=== PATIENT | female | born 1935 | race Caucasian/White ===

== ENCOUNTER → 2016-11-29 | Outpatient (CLI) | payer MEDICARE, BC ==
[2016-11-29 09:32] LABS: Basophils # (A) 0.1 k/uL (0-0.2); Basophils % (A) 1 %; CH 32.8; CHCM 33.8; Eosinophils # (A) 0.3 k/uL (0-0.7); Eosinophils % (A) 4 %; HCT 48.9 % (34.0-46.0); HDW 2.67; Luc # (Auto) 0.14; Luc % (Auto) 2; Lymphocytes # (A) 2.1 k/uL (1.0-4.8); Lymphocytes % (A) 30 %; MCH 31.9 pg (25.0-35.0); MCHC 32.7 g/dL (31.0-37.0); MCV 97.6 fL (80.0-100.0); Mean Platelet Volume 8.9; Monocytes # (A) 0.3 k/uL (0-1.0); Monocytes % (A) 5 %; Neutrophils # (A) 3.9 k/uL (1.3-7.7); Neutrophils % (A) 58 %; RBC 5.02 m/uL (3.80-5.40); RDW 13.5 % (11.5-15.5); WBC 6.7 k/uL (3.8-10.6); WBC (Perox) 6.86
[2016-11-29 10:42] LABS: Appearance,Urine Cloudy (Clear); Bacteria,Urine Many /hpf; Bilirubin,Urine Negative (Negative); Glucose,Urine (UA) Negative (Negative); Ketones,Urine Negative (Negative); Leukocyte Esterase,Urine Large (Negative); Mucus,Urine Occasional /hpf; Nitrite,Urine Negative (Negative); Particle Count 10520; Protein,Urine 1+ (Negative); RBC,Urine 16 /hpf (0-5); Specific Gravity,Urine 1.018 (1.001-1.035); Squamous Epithelial Cell,Urine 6 /hpf (0-4); UA Billing (MACRO vs. MICRO) MICRO; WBC,Urine 24 /hpf (0-5)
[2016-11-29 12:41] LABS: Calcium 9.4 mg/dL (8.4-10.2); Magnesium 2.1 mg/dL (1.6-2.3); Phosphorous 4.2 mg/dL (2.5-4.5); Uric Acid 5.7 mg/dL (3.7-7.4)
[2016-11-29 12:51] LABS: % Iron Saturation 25.3 % (20-50)
== END | disposition home or self-care (01) ==
LOC: LABWHC1 08:33
PROVIDERS: ATTEND Internal Medicine Nephrology
DX: N18.3 Chronic kidney disease, stage 3 (moderate) (principal); D64.9 Anemia, unspecified; E55.9 Vitamin D deficiency, unspecified; E21.3 Hyperparathyroidism, unspecified; M10.9 Gout, unspecified; N39.0 Urinary tract infection, site not specified
CPT/HCPCS: 36415; 80048; 81001; 82306; 82728; 83540; 83550; 83735; 83970; 84100; 84550; 85025

== ENCOUNTER → 2016-12-18 | Outpatient (CLI) | payer MEDICARE, BC ==
--- NOTE | 2016-12-18 13:08 | US ---
EXAMINATION TYPE: US kidneys/renal and bladder DATE OF EXAM: 12/18/2016 12:43 PM COMPARISON: NONE CLINICAL HISTORY: N18.3 CKD. no symptoms per patient EXAM MEASUREMENTS: Right Kidney: 10.2 x 4.2 x 4.3 cm Left Kidney: 10.3 x 3.9 x 4.6c cm Findings: Right Kidney: cortical thinning Left Kidney: cortical thinning Bladder: wnl Bilateral Jets seen: no appearance of left sided pleural effusion There is no evidence for hydronephrosis at this point in time. No nephrolithiasis is seen. No jeremy s are identified. The urinary bladder is anechoic. Bilateral ureteral jets are seen. IMPRESSION: Cortical thinning. Otherwise unremarkable study.
== END ==
LOC: RADUSWWP 12:26
PROVIDERS: ATTEND Internal Medicine Nephrology
DX: N18.3 Chronic kidney disease, stage 3 (moderate) (principal)
CPT/HCPCS: 76770

== ENCOUNTER 2017-01-13 10:15 | Emergency (ER) | payer MEDICARE, BC ==
[2017-01-13 10:34] VITALS: TEMP 98.2
--- NOTE | 2017-01-13 11:31 | ED ---
Lower Extremity Injury HPI - General Chief Complaint: Extremity Injury, Lower Stated Complaint: RT LEG INJURY FROM FALL Time Seen by Provider: 01/13/17 11:16 Source: patient Mode of arrival: wheelchair Limitations: no limitations - History of Present Illness Initial Comments: 81-year-old female patient presents emergency department today for complaints of right hip pain. Patient states yesterday she was in the bathroom slipped and fell. Patient denies hitting her hip on anything. She denies hitting her head or losing consciousness. She denies any head, neck, or back pain. Patient states she is able to bear weight and walk however it is very painful. She denies any numbness or tingling to the extremity. Has any chest pain, weakness, dizziness, abdominal pain, nausea, or vomiting. She denies any urinary symptoms. Denies any change in bowel habits. - Related Data Home Medications Medication Instructions Recorded Confirmed Aspirin 81 mg PO DAILY 08/03/15 08/03/15 Donepezil HCl [Donepezil HCl] 5 mg PO DAILY 08/03/15 08/03/15 Ergocalciferol [Vitamin D2] 50,000 unit PO Q7D 08/03/15 08/03/15 Furosemide [Furosemide] 20 mg PO DAILY 08/03/15 08/03/15 Levothyroxine Sodium [Synthroid] 88 mcg PO DAILY 08/03/15 08/03/15 Meclizine HCl 12.5 mg PO BID 08/03/15 08/03/15 Metoprolol Succinate [Toprol XL] 50 mg PO HS 08/03/15 08/03/15 Pantoprazole Sodium 40 mg PO DAILY 08/03/15 08/03/15 amLODIPine BESYLATE [Amlodipine 10 mg PO DAILY 08/03/15 08/03/15 Besylate] Previous Rx's Medication Instructions Recorded Acetaminophen-Codeine 300-30mg 1 tab PO Q4H PRN #20 tablet 01/13/17 [Tylenol #3] Allergies Allergy/AdvReac Type Severity Reaction Status Date / Time Penicillins Allergy Unknown Verified 01/13/17 12:14 Sulfa (Sulfonamide Allergy Unknown Verified 01/13/17 12:14 Antibiotics) Review of Systems ROS Statement: Those systems with pertinent positive or pertinent negative responses have been documented in the HPI. ROS Other: All systems not noted in ROS Statement are negative. Past Medical History Past Medical History: CVA/TIA, Hyperlipidemia, Hypertension, Renal Disease Additional Past Medical History / Comment(s): CVA "FEW YRS AGO"-WALKS WITH CANE- HAS BALANCE PROBLEMS-STM LOSS,SOB, STONES IN GALLBLADDER AND BILE DUCT History of Any Multi-Drug Resistant Organisms: None Reported Past Surgical History: Tonsillectomy Past Anesthesia/Blood Transfusion Reactions: No Reported Reaction Past Psychological History: No Psychological Hx Reported Smoking Status: Current every day smoker Past Alcohol Use History: None Reported Additional Past Alcohol Use History / Comment(s): STARTED SMOKING 1950 Past Drug Use History: None Reported - Past Family History Mother History Unknown: Yes Father History Unknown: Yes General Exam Limitations: no limitations General appearance: alert, in no apparent distress Head exam: Present: atraumatic, normocephalic, normal inspection Eye exam: Present: normal appearance, PERRL, EOMI. Absent: scleral icterus, conjunctival injection, periorbital swelling ENT exam: Present: normal exam, normal oropharynx, mucous membranes moist Neck exam: Present: normal inspection, full ROM. Absent: tenderness, meningismus, lymphadenopathy Respiratory exam: Present: normal lung sounds bilaterally. Absent: respiratory distress, wheezes, rales, rhonchi, stridor Cardiovascular Exam: Present: regular rate, normal rhythm, normal heart sounds. Absent: systolic murmur, diastolic murmur, rubs, gallop, clicks GI/Abdominal exam: Present: soft, normal bowel sounds. Absent: distended, tenderness, guarding, rebound, rigid Extremities exam: Present: normal inspection, full ROM, tenderness (Over the greater trochanter of right hip joint), normal capillary refill, other ( Increased pain with abduction, extension. No shortening or rotation.). Absent : pedal edema, joint swelling Back exam: Present: normal inspection. Absent: tenderness, vertebral tenderness Neurological exam: Present: alert, oriented X3, CN II-XII intact Psychiatric exam: Present: normal affect, normal mood Skin exam: Present: warm, dry, intact, normal color. Absent: rash Course Vital Signs 01/13/17 10:31 Temperature 98.2 F Pulse Rate 70 Respiratory 18 Rate Blood Pressure 107/58 O2 Sat by Pulse 95 Oximetry Medical Decision Making - Medical Decision Making 81-year-old female patient presented to emergency department for evaluation of right hip pain after fall. X-ray was obtained and showed no acute osseous lesion to right hip or pelvis. Patient does have full range of motion on physical exam, neurovascular status is intact. Patient be discharged home with instructions to rest and ice the area. Patient instructed to follow up with primary care physician if symptoms don't start to improve over the next 1-2 days. Patient instructed to return for any new, worsening, or concerning symptoms. Patient verbalizes understanding and agrees with this plan. - Radiology Data Radiology results: report reviewed, image reviewed X-ray of the right hip and AP pelvis findings: There is hypertrophic change in the symphysis pubis. Bony structures about the pelvis are otherwise unremarkable. Hip joint is maintained. No fracture dislocation seen. Impression by Dr. Murray is no acute osseous lesion. Disposition Clinical Impression: Contusion of right hip Disposition: HOME SELF-CARE Condition: Stable Instructions: Hip Contusion (ED) Additional Instructions: Rest and ice the area. 20 minutes on at least 4 times per day. Follow-up with primary care physician if symptoms don't improve. Return for any new, worsening , or concerning symptoms. Prescriptions: Acetaminophen-Codeine 300-30mg [Tylenol #3] 1 tab PO Q4H PRN #20 tablet PRN Reason: pain Referrals: Ana Baxter DO [Primary Care Provider] - 1-2 days Time of Disposition: 12:10
--- NOTE | 2017-01-13 11:58 | XR ---
EXAMINATION TYPE: XR Hip RT and AP Pelvis DATE OF EXAM ORDERED: 01/13/2017 11:49 AM HISTORY: Pain. COMPARISON: None. FINDINGS: There is hypertrophic change in the symphysis pubis. Bony structures about the pelvis are otherwise unremarkable. The hip joint is maintained. No fracture or dislocation is seen. IMPRESSION: NO ACUTE OSSEOUS LESION.
[2017-01-13 12:27] VITALS: BP 148/73; PULSE 68; RESP 16
== END 2017-01-13 12:26 | disposition home or self-care (01) ==
LOC: EC 10:15
DX: S70.01XA Contusion of right hip, initial encounter (principal); E78.5 Hyperlipidemia, unspecified; I10 Essential (primary) hypertension; Z86.73 Personal history of transient ischemic attack (TIA), and cerebral infarction without residual deficits; F17.200 Nicotine dependence, unspecified, uncomplicated; Z79.82 Long term (current) use of aspirin; Z79.899 Other long term (current) drug therapy; Z88.0 Allergy status to penicillin; Z88.2 Allergy status to sulfonamides; W01.0XXA Fall on same level from slipping, tripping and stumbling without subsequent striking against object, initial encounter; Y92.002 Bathroom of unspecified non-institutional (private) residence as the place of occurrence of the external cause
CPT/HCPCS: 73502; 99283

== ENCOUNTER 2018-04-09 18:23 | Inpatient (IN) | payer MEDICARE, BC ==
[2018-04-09 18:36] LABS: Glucose,Whole Blood 137 mg/dL (75-99)
[2018-04-09] MEDS ORDERED: SODIUM CHLORIDE 0.9% 500 ML IV STA (18:41)
--- NOTE | 2018-04-09 18:46 | ED ---
General Adult HPI - General Chief complaint: Syncope Stated complaint: Syncope Time Seen by Provider: 04/09/18 18:25 Source: patient, EMS, RN notes reviewed Mode of arrival: EMS Limitations: no limitations - History of Present Illness Initial comments: Is a 82-year-old female who presents emergency Department complaining of a club so. Patient was getting her blood drawn to make sure she didn't have any elevated lead levels and she passed out. Patient states she had no symptoms before or after she passed out. She didn't even know she passed out. Patient denies headache patient denies any numbness weakness. Patient denies being lightheaded now. Patient denies being lightheaded then. Patient denies any palpitations. Patient denies any chest pain difficulty breathing or shortness of breath. Patient denies any recent fever chills or cough. Patient denies any new medications. Patient denies any history of syncope in the past. Patient states she didn't even know she was going to pass out and didn't know what happened she woke up on the floor with people talking to her and she had to be told what happened. She had no prodrome. - Related Data Home Medications Medication Instructions Recorded Confirmed Donepezil HCl [Donepezil HCl] 5 mg PO DAILY 08/03/15 04/09/18 Ergocalciferol [Vitamin D2] 50,000 unit PO Q30D 08/03/15 04/09/18 Furosemide [Furosemide] 20 mg PO DAILY 08/03/15 04/09/18 Levothyroxine Sodium [Synthroid] 88 mcg PO DAILY 08/03/15 04/09/18 Meclizine HCl 12.5 mg PO BID 08/03/15 04/09/18 Metoprolol Succinate [Toprol XL] 25 mg PO BID 08/03/15 04/09/18 Pantoprazole Sodium 40 mg PO DAILY 08/03/15 04/09/18 Atorvastatin [Lipitor] 40 mg PO HS 01/13/17 04/09/18 Ramipril [Altace] 2.5 mg PO DAILY 01/13/17 04/09/18 Aspirin [Adult Low Dose Aspirin EC] 81 mg PO DAILY 04/09/18 04/09/18 amLODIPine [Norvasc] 5 mg PO DAILY 04/09/18 04/09/18 Allergies Allergy/AdvReac Type Severity Reaction Status Date / Time Penicillins Allergy Unknown Verified 04/09/18 18:55 Sulfa (Sulfonamide Allergy Unknown Verified 04/09/18 18:55 Antibiotics) Review of Systems ROS Statement: Those systems with pertinent positive or pertinent negative responses have been documented in the HPI. ROS Other: All systems not noted in ROS Statement are negative. Past Medical History Past Medical History: CVA/TIA, Hyperlipidemia, Hypertension, Renal Disease Additional Past Medical History / Comment(s): CVA "FEW YRS AGO"-WALKS WITH CANE- HAS BALANCE PROBLEMS-STM LOSS,SOB, STONES IN GALLBLADDER AND BILE DUCT History of Any Multi-Drug Resistant Organisms: None Reported Past Surgical History: Tonsillectomy Past Anesthesia/Blood Transfusion Reactions: No Reported Reaction Past Psychological History: No Psychological Hx Reported Smoking Status: Current every day smoker Past Alcohol Use History: None Reported Past Drug Use History: None Reported - Past Family History Mother History Unknown: Yes Father History Unknown: Yes General Exam - General Exam Comments Initial Comments: GENERAL: Patient is well-developed and well-nourished. Patient is nontoxic and well- hydrated and is in no acute distress. ENT: Neck is soft and supple. No significant lymphadenopathy is noted. Oropharynx is clear. Moist mucous membranes. Neck has full range of motion without eliciting any pain. EYES: The sclera were anicteric and conjunctiva were pink and moist. Extraocular movements were intact and pupils were equal round and reactive to light. Eyelids were unremarkable. PULMONARY: Unlabored respirations. Good breath sounds bilaterally. No audible rales rhonchi or wheezing was noted. CARDIOVASCULAR: There is a regular rate and rhythm without any murmurs gallops or rubs. ABDOMEN: Soft and nontender with normal bowel sounds. No palpable organomegaly was noted. There is no palpable pulsatile mass. SKIN: Skin is clear with no lesions or rashes and otherwise unremarkable. NEUROLOGIC: Patient is alert and oriented x3. Cranial nerves II through XII are grossly intact. Motor and sensory are also intact. Normal speech, volume and content. Symmetrical smile. MUSCULOSKELETAL: Normal extremities with adequate strength and full range of motion. LYMPHATICS: No significant lymphadenopathy is noted PSYCHIATRIC: Normal psychiatric evaluation. Normal interpersonal interactions appears functionally intact in deals appropriately with others. No signs of depression. No signs of anxiety. Limitations: no limitations Course Vital Signs 04/09/18 04/09/18 18:28 20:07 Temperature 97 F L Pulse Rate 61 57 L Respiratory 18 18 Rate Blood Pressure 103/58 144/62 O2 Sat by Pulse 89 L 100 Oximetry Medical Decision Making - Medical Decision Making EKG shows sinus bradycardia 56 bpm SC interval 254 QRS is 82 QT interval 446 QTC is 4:30. Patient's EKG shows no ST segment elevation or depression or T wave abnormalities are noted. Chest x-ray shows no acute abnormality. Patient has no symptoms at this time. Dr. Negron agreed to admit the patient admitted the patient I consult cardiology. - Lab Data Result diagrams: 04/09/18 18:46 04/09/18 18:46 Lab Results 04/09/18 04/09/18 04/09/18 Range/Units 18:33 18:46 18:46 WBC 8.5 (3.8-10.6) k/uL RBC 4.41 (3.80-5.40) m/uL Hgb 13.8 (11.4-16.0) gm/dL Hct 41.5 (34.0-46.0) % MCV 94.1 (80.0-100.0) fL MCH 31.4 (25.0-35.0) pg MCHC 33.3 (31.0-37.0) g/dL RDW 13.6 (11.5-15.5) % Plt Count 260 (150-450) k/uL Neutrophils % 47 % Lymphocytes % 41 % Monocytes % 6 % Eosinophils % 4 % Basophils % 0 % Neutrophils # 4.0 (1.3-7.7) k/uL Lymphocytes # 3.5 (1.0-4.8) k/uL Monocytes # 0.5 (0-1.0) k/uL Eosinophils # 0.3 (0-0.7) k/uL Basophils # 0.0 (0-0.2) k/uL PT (9.0-12.0) sec INR (<1.2) APTT (22.0-30.0) sec Sodium (137-145) mmol/L Potassium (3.5-5.1) mmol/L Chloride (98-107) mmol/L Carbon Dioxide (22-30) mmol/L Anion Gap mmol/L BUN (7-17) mg/dL Creatinine (0.52-1.04) mg/dL Est GFR (CKD-EPI)AfAm (>60 ml/min/1.73 sqM) Est GFR (CKD-EPI)NonAf (>60 ml/min/1.73 sqM) Glucose (74-99) mg/dL POC Glucose (mg/dL) 137 H (75-99) mg/dL POC Glu Pathology Laboratory Aides Teacher ID Salgat, Jyotsna Calcium (8.4-10.2) mg/dL Magnesium (1.6-2.3) mg/dL Total Bilirubin (0.2-1.3) mg/dL AST (14-36) U/L ALT (9-52) U/L Alkaline Phosphatase (38-126) U/L Total Creatine Kinase 31 (30-135) U/L CK-MB (CK-2) 0.3 (0.0-2.4) ng/mL CK-MB (CK-2) Rel Index 1.0 Troponin I <0.012 (0.000-0.034) ng/mL Total Protein (6.3-8.2) g/dL Albumin (3.5-5.0) g/dL 04/09/18 04/09/18 Range/Units 18:46 18:46 WBC (3.8-10.6) k/uL RBC (3.80-5.40) m/uL Hgb (11.4-16.0) gm/dL Hct (34.0-46.0) % MCV (80.0-100.0) fL MCH (25.0-35.0) pg MCHC (31.0-37.0) g/dL RDW (11.5-15.5) % Plt Count (150-450) k/uL Neutrophils % % Lymphocytes % % Monocytes % % Eosinophils % % Basophils % % Neutrophils # (1.3-7.7) k/uL Lymphocytes # (1.0-4.8) k/uL Monocytes # (0-1.0) k/uL Eosinophils # (0-0.7) k/uL Basophils # (0-0.2) k/uL PT 11.1 (9.0-12.0) sec INR 1.1 (<1.2) APTT 20.1 L (22.0-30.0) sec Sodium 142 (137-145) mmol/L Potassium 4.7 (3.5-5.1) mmol/L Chloride 107 (98-107) mmol/L Carbon Dioxide 25 (22-30) mmol/L Anion Gap 10 mmol/L BUN 26 H (7-17) mg/dL Creatinine 1.80 H (0.52-1.04) mg/dL Est GFR (CKD-EPI)AfAm 30 (>60 ml/min/1.73 sqM) Est GFR (CKD-EPI)NonAf 26 (>60 ml/min/1.73 sqM) Glucose 133 H (74-99) mg/dL POC Glucose (mg/dL) (75-99) mg/dL POC Glu Pathology Laboratory Aides Teacher ID Calcium 8.9 (8.4-10.2) mg/dL Magnesium 2.1 (1.6-2.3) mg/dL Total Bilirubin 0.5 (0.2-1.3) mg/dL AST 24 (14-36) U/L ALT 31 (9-52) U/L Alkaline Phosphatase 42 (38-126) U/L Total Creatine Kinase (30-135) U/L CK-MB (CK-2) (0.0-2.4) ng/mL CK-MB (CK-2) Rel Index Troponin I (0.000-0.034) ng/mL Total Protein 6.0 L (6.3-8.2) g/dL Albumin 3.5 (3.5-5.0) g/dL Disposition Clinical Impression: Syncope and collapse Disposition: ADMITTED IP TO THIS HOSP Referrals: Ana Baxter DO [Primary Care Provider] - 1-2 days Time of Disposition: 20:36
[2018-04-09 18:53] LABS: Basophils % (A) 0 %; Eosinophils # (A) 0.3 k/uL (0-0.7); Eosinophils % (A) 4 %; HCT 41.5 % (34.0-46.0); HGB 13.8 gm/dL (11.4-16.0); Lymphocytes # (A) 3.5 k/uL (1.0-4.8); Lymphocytes % (A) 41 %; MCH 31.4 pg (25.0-35.0); MCHC 33.3 g/dL (31.0-37.0); MCV 94.1 fL (80.0-100.0); Mean Platelet Volume 8.5; Monocytes # (A) 0.5 k/uL (0-1.0); Monocytes % (A) 6 %; Neutrophils % (A) 47 %; Platelet Count 260 k/uL (150-450); RBC 4.41 m/uL (3.80-5.40); RDW 13.6 % (11.5-15.5); WBC 8.5 k/uL (3.8-10.6)
[2018-04-09 19:05] LABS: Albumin 3.5 g/dL (3.5-5.0); Calcium 8.9 mg/dL (8.4-10.2); Magnesium 2.1 mg/dL (1.6-2.3); Potassium 4.7 mmol/L (3.5-5.1); Total Bilirubin 0.5 mg/dL (0.2-1.3)
--- NOTE | 2018-04-09 19:08 | XR ---
EXAMINATION TYPE: XR chest 2V DATE OF EXAM: 04/09/2018 COMPARISON: September 15, 2016 HISTORY: Chest pain TECHNIQUE: Frontal and lateral views of the chest are obtained. FINDINGS: There is no heart failure nor confluent pneumonic infiltrate. Costophrenic angles are sammi r. There are no hilar masses. Thoracic aorta is atheromatous. There is pleural thickening and calcifi cation at the lung apices. There is some coarsening of interstitial markings. IMPRESSION: Pleural scarring. Mild pulmonary fibrosis. No active cardiopulmonary disease. No signifi cant change.
[2018-04-09 19:12] LABS: Creatine Kinase 31 U/L (30-135)
[2018-04-09 19:26] LABS: Creatine Kinase MB 0.3 ng/mL (0.0-2.4); Troponin I <0.012 ng/mL (0.000-0.034)
[2018-04-09 19:27] LABS: INR 1.1 (<1.2); Prothrombin Time 11.1 sec (9.0-12.0)
[2018-04-09 19:33] LABS: Partial Thromboplastin Time 20.1 sec (22.0-30.0)
[2018-04-09] MEDS ORDERED: NITROGLYCERIN SL TABS 0.4 MG TAB SUBLINGUAL PRN (20:37)
[2018-04-09 21:19] VITALS: BMI 23.1
[2018-04-10 01:53] LABS: Creatine Kinase 29 U/L (30-135)
[2018-04-10 02:07] LABS: Creatine Kinase MB 0.3 ng/mL (0.0-2.4); Troponin I <0.012 ng/mL (0.000-0.034)
[2018-04-10 07:44] LABS: Creatine Kinase 28 U/L (30-135)
[2018-04-10 07:46] LABS: Creatine Kinase MB 0.3 ng/mL (0.0-2.4); Troponin I <0.012 ng/mL (0.000-0.034)
[2018-04-10 08:14] LABS: Cholesterol 132 mg/dL (<200); HDL Cholesterol 25 mg/dL (40-60); LDL Cholesterol,Calculated 76 mg/dL (0-99); Triglycerides 154 mg/dL (<150)
--- NOTE | 2018-04-10 09:18 | CONS ---
CONSULTATION CHIEF COMPLAINT: Syncope. This is an 82-year-old lady that is admitted to the hospital with syncope. Because the [facility] system is not functioning we do not have access to any of her records, labs or vital signs at this time. I am told by the nurse that the patient was standing in line to have a blood draw and then suddenly passed out. She did not have bladder or bowel incontinence or focal neurological deficits. She carries a history of prior stroke and ambulates with a walker. Currently lives with her children from what she tells me. Since being admitted to hospital, she is doing well and is free of symptoms. Has not had further episodes of syncope. Denies chest pain, difficulty in breathing or palpitations. EKG shows sinus bradycardia. Rhythm strip showed that she is in sinus rhythm. PAST MEDICAL HISTORY: She denies hypertension, diabetes, dyslipidemia. MEDICATIONS: She does not have the list with her. ALLERGIES: Allergies are as charted. FAMILY HISTORY: Not relevant. SOCIAL HISTORY: Denies current smoking, EtOH abuse or drug abuse. REVIEW OF SYSTEMS: HEENT is unremarkable. CARDIAC: As described above. RESPIRATORY: As described above. GI: Negative. GENITOURINARY: Negative. ALLERGY/IMMUNOLOGY: Negative. SKIN: Negative. MUSCULOSKELETAL: Significant for arthritis. PSYCHOSOCIAL: Negative. ENDOCRINE: Negative. DERMATOLOGICAL: Negative. CONSTITUTIONAL: Negative. ONCOLOGICAL: Negative. INTEGRATED CIRCUIT LAYOUT DESIGNER: Significant for syncope. PHYSICAL EXAMINATION: On exam, patient is comfortable at rest. Her vital signs are stable. There is no jugular venous distention. Carotid upstroke is normal. Chest exam reveals diminished air entry at the bases. Heart exam reveals first and second heart sounds. No gallop. Has a systolic murmur at the apex. Abdomen is soft. Exam of extremities did not reveal any edema. Peripheral pulses are felt. INTEGRATED CIRCUIT LAYOUT DESIGNER exam did not reveal focal neurological deficits. EKG is as described above. Labs are not available to me at this time. I will review them as they are available. ASSESSMENT: Syncope, rule out cardiac causes. PLAN: So far, the patient did not have tachy or bradyarrhythmias. The patient did not have any CVA. I am going to obtain a 2D echo to evaluate LV function and carotid duplex study to rule out carotid stenosis. Obtain orthostatics. From the clinical presentation, it seems like a vasovagal episode as patient was standing for blood draw, but we will complete this workup and once this is done, we should be able to let her go home and pursue further workup in the outpatient setting including a possible stress test. SHARON / IJN: [id number] /
[2018-04-10] MEDS: ASPIRIN 325 MG TAB PO SCH (11:22)
--- NOTE | 2018-04-10 13:00 | US ---
EXAMINATION TYPE: US carotid duplex BILAT DATE OF EXAM: 04/10/2018 COMPARISON: NONE CLINICAL HISTORY: STENOSIS. EXAM MEASUREMENTS: RIGHT: Peak Systolic Velocity (PSV) cm/sec ----- Right CCA: 72.4 ----- Right ICA: 128.7 ----- Right ECA: 92.5 ICA/CCA ratio: 1.8 RIGHT: End Diastole cm/sec ----- Right CCA: 14.2 ----- Right ICA: 22.3 ----- Right ECA: 0.0 LEFT: Peak Systolic Velocity (PSV) cm/sec ----- Left CCA: 44.6 ----- Left ICA: -- ----- Left ECA: 108.8 ICA/CCA ratio: -- LEFT: End Diastole cm/sec ----- Left CCA: 0.0 ----- Left ICA: -- ----- Left ECA: 0.0 VERTEBRALS (direction of flow): Right Vertebral: Antegrade Left Vertebral: Antegrade Rhythm: Normal Moderate plaque on right, severe plaque on left. Right ICA shows slight velocity increase, left ICA a ppears to be occluded. No color-flow evident in the distribution of the proximal internal carotid ar becki on the left. Grayscale, color Doppler, spectral Doppler imaging performed of the carotid arteries. 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 Atheromatous changes are present on the right, carotid CTA may be of benefit.
[2018-04-10] MEDS ORDERED: ERGOCALCIFEROL 50,000 UNIT CAP PO SCH (13:30)
--- NOTE | 2018-04-10 14:00 | P.HPIM ---
History of Present Illness H&P Date: 04/10/18 Chief Complaint: syncope with collapse This is an 82-year-old female patient of Dr. Baxter who presented to the emergency department after she had a syncopal episode with collapse. And states she was waiting in line to get her blood drawn when she passed out. Patient states she had no memory of the event. Patient states she does have a history of CVA a few years ago. Other history includes hyperlipidemia, hypertension, renal disease. Patient is a current every day smoker. Patient denies any lightheadedness headache or neuro symptoms at this time. Denies losing bowel or bladder function during event. Denies pain or shortness of breath at this time. Chest x-ray completed in emergency department showing pleural scarring. Mild pulmonary fibrosis. No active cardiopulmonary disease no significant change. EKG showed sinus bradycardia. Cardiology has been consulted. A Carotid ultrasound, orthostatic blood pressures, and 2-D echo have been ordered. Review of Systems Otherwise unremarkable please see HPI Past Medical History Past Medical History: CVA/TIA, Hyperlipidemia, Hypertension, Renal Disease Additional Past Medical History / Comment(s): CVA "FEW YRS AGO"-WALKS WITH CANE- HAS BALANCE PROBLEMS-STM LOSS,SOB, STONES IN GALLBLADDER AND BILE DUCT History of Any Multi-Drug Resistant Organisms: None Reported Past Surgical History: Tonsillectomy Past Anesthesia/Blood Transfusion Reactions: No Reported Reaction Past Psychological History: No Psychological Hx Reported Smoking Status: Current every day smoker Past Alcohol Use History: None Reported Additional Past Alcohol Use History / Comment(s): STARTED SMOKING 1950 Past Drug Use History: None Reported - Past Family History Mother History Unknown: Yes Father History Unknown: Yes Medications and Allergies Home Medications Medication Instructions Recorded Confirmed Type Donepezil HCl 5 mg PO DAILY 08/03/15 04/09/18 History Ergocalciferol [Vitamin D2] 50,000 unit PO Q30D 08/03/15 04/09/18 History Furosemide 20 mg PO DAILY 08/03/15 04/09/18 History Levothyroxine Sodium [Synthroid] 88 mcg PO DAILY 08/03/15 04/09/18 History Meclizine HCl 12.5 mg PO BID 08/03/15 04/09/18 History Metoprolol Succinate [Toprol XL] 25 mg PO BID 08/03/15 04/09/18 History Pantoprazole Sodium 40 mg PO DAILY 08/03/15 04/09/18 History Atorvastatin [Lipitor] 40 mg PO HS 01/13/17 04/09/18 History Ramipril [Altace] 2.5 mg PO DAILY 01/13/17 04/09/18 History Aspirin [Adult Low Dose Aspirin EC] 81 mg PO DAILY 04/09/18 04/09/18 History amLODIPine [Norvasc] 5 mg PO DAILY 04/09/18 04/09/18 History Allergies Allergy/AdvReac Type Severity Reaction Status Date / Time Penicillins Allergy Unknown Verified 04/09/18 18:55 Sulfa (Sulfonamide Allergy Unknown Verified 04/09/18 18:55 Antibiotics) Physical Exam Vitals: Vital Signs Temp Pulse Pulse Resp BP BP Pulse Ox 04/10/18 12:00 97.5 F L 60 16 122/58 93 L 04/10/18 00:00 96.8 F L 58 L 14 116/65 99 04/09/18 21:01 98 F 60 18 149/66 96 04/09/18 20:07 57 L 18 144/62 100 04/09/18 18:28 97 F L 61 18 103/58 89 L Intake and Output 04/09/18 04/10/18 04/10/18 22:59 06:59 14:59 Other: Weight 64.864 kg Head normocephalic Neck supple Lungs clear to auscultation bilaterally no wheezing or crackles Heart regular rate and rhythm S1-S2, no rub or gallop Abdomen is soft nontender nondistended positive bowel sounds no hepatosplenomegaly Extremities no edema Neuro alert and orientated to 3 Results CBC & Chem 7: 04/09/18 18:46 04/09/18 18:46 Labs: Abnormal Lab Results - Last 24 Hours (Table) 04/09/18 04/09/18 04/09/18 Range/Units 18:33 18:46 18:46 APTT 20.1 L (22.0-30.0) sec BUN 26 H (7-17) mg/dL Creatinine 1.80 H (0.52-1.04) mg/dL Glucose 133 H (74-99) mg/dL POC Glucose (mg/dL) 137 H (75-99) mg/dL Total Creatine Kinase (30-135) U/L Total Protein 6.0 L (6.3-8.2) g/dL 04/10/18 Range/Units 01:01 APTT (22.0-30.0) sec BUN (7-17) mg/dL Creatinine (0.52-1.04) mg/dL Glucose (74-99) mg/dL POC Glucose (mg/dL) (75-99) mg/dL Total Creatine Kinase 29 L (30-135) U/L Total Protein (6.3-8.2) g/dL Assessment and Plan Assessment: 1. Syncopal event: Cardiology consulted, believes it could be a vasovagal episode. Carotid ultrasound, orthostatic blood pressures, and 2-D echo have been ordered per cardiology 2. History of CVA continue aspirin 3. History of hyperlipidemia continue Lipitor 4. History of hypothyroidism continue Synthroid and check TSH and T4 levels. 5. Nicotine dependence. Discussed greater than 5 minutes smoking cessation 6. History of hypertension 7. Chronic kidney disease stage IV. GI prophylaxis protonix, DVT prophylaxis heparin. Time with Patient: Greater than 30 (I performed an examination of the patient and discussed their management with the Nurse Practitioner. I have reviewed the Nurse Practitioner's notes and agree with the documented findings and plan of care)
--- NOTE | 2018-04-10 15:49 | CT ---
EXAMINATION TYPE: CT brain wo con DATE OF EXAM: 04/10/2018 COMPARISON: NONE HISTORY: Syncope and weakness CT DLP: 1064.[address] of the brain was performed. The ventricles, basal cisterns and sulci overlying the cerebral convexities demonstrate mild enlargem ent. There is no evidence for intracranial hemorrhage or sulcal effacement. Remote insult left MCA territ ory. There is decreased attenuation about the periventricular white matter and deep white matter of both c erebral hemispheres, compatible with chronic small vessel ischemia. Differential diagnosis does inclu de demyelination. No mass effects are seen.No midline shift. Osseous calvarium is intact. If symptoms persist consider MRI. IMPRESSION: 1. Age related atrophic and chronic small vessel ischemic change without acute intracranial process s een at this time.
[2018-04-10] MEDS: SODIUM CHLORIDE 0.9% 1,000 ML IV SCH (16:35)
[2018-04-10] MEDS: NICOTINE 21MG/24HR PATCH TRANSDERM SCH (16:35)
--- NOTE | 2018-04-10 17:09 | CONS ---
CONSULTATION This is an 82-year-old female known to me from my office. Patient came with a syncopal episode with collapse. She had no history of seizure or any memory loss. She had a history of CVA in the past years ago. There is no history of TIA or amaurosis fugax. Patient has history of hyperlipidemia, hypertension, renal disease, the patient had a stroke workup including carotid ultrasound and carotid ultrasound shows occlusion of the proximal internal carotid artery on the left and some atherosclerosis disease present on the right. The patient had a CT of the brain which showed small vessel disease. PAST MEDICAL HISTORY: History of hyperlipidemia, hypertension, renal disease, history of CVA in the past. SURGICAL HISTORY: No major surgery in the past. EXAMINATION: Patient was seen in her room. Her vital signs stable. NECK: Supple. Trachea central. No bruit appreciated. CHEST: Clear to auscultation. First and second sounds normal. ABDOMEN: Soft, nontender. Vascular examination brachial, radial and femoral pulses are present. CENTRAL NERVOUS SYSTEM: the patient is alert and oriented to time and place. Normal motor function. IMPRESSION: History of syncopal attack and ultrasound showed a right ICA showed totally occluded and no color flow noted and right carotid some atherosclerosis disease. At this point, patient has chronic occlusion of the carotid artery and the right carotid artery is patent. PLAN: The patient will be on antiplatelet therapy and is totally occluded. No role of surgical intervention. I will review the records from my office and further recommendation will be made. At this point, patient is stable. MMODL / IJN: [id number] /
[2018-04-10] MEDS: HEPARIN SODIUM,PORCINE 5,000 UNIT/ML 1 ML VIAL SQ SCH (20:32)
[2018-04-10] MEDS ORDERED: ATORVASTATIN 40 MG TAB PO SCH (21:00)
[2018-04-11 06:25] LABS: Basophils % (A) 0 %; Eosinophils # (A) 0.4 k/uL (0-0.7); Eosinophils % (A) 6 %; HCT 35.3 % (34.0-46.0); HGB 11.6 gm/dL (11.4-16.0); Lymphocytes % (A) 32 %; MCH 31.4 pg (25.0-35.0); MCHC 32.9 g/dL (31.0-37.0); MCV 95.6 fL (80.0-100.0); Mean Platelet Volume 8.4; Monocytes # (A) 0.4 k/uL (0-1.0); Monocytes % (A) 6 %; Neutrophils # (A) 3.5 k/uL (1.3-7.7); Neutrophils % (A) 55 %; Platelet Count 210 k/uL (150-450); RBC 3.69 m/uL (3.80-5.40); RDW 13.5 % (11.5-15.5); WBC 6.4 k/uL (3.8-10.6)
[2018-04-11] MEDS ORDERED: LEVOTHYROXINE 88 MCG TAB PO SCH (06:30)
[2018-04-11 06:37] LABS: Albumin 2.6 g/dL (3.5-5.0); Calcium 8.3 mg/dL (8.4-10.2); Potassium 4.3 mmol/L (3.5-5.1); Total Bilirubin 0.7 mg/dL (0.2-1.3); Total Protein 4.7 g/dL (6.3-8.2)
--- NOTE | 2018-04-11 06:38 | ECHOF ---
Referral Reason:SYNCOPE MEASUREMENTS -------- HEIGHT: 170.2 cm WEIGHT: 68.0 kg BP: RVIDd: 3.2 cm (< 3.3) IVSd: 1.0 cm (0.6 - 1.1) LVIDd: 3.9 cm (3.9 - 5.3) LVPWd: 1.3 cm (0.6 - 1.1) IVSs: 1.4 cm LVIDs: 3.3 cm LVPWs: 1.6 cm LA Diam: 3.1 cm (2.7 - 3.8) LAESV Index (A-L): 31.86 ml/m Ao Diam: 2.9 cm (2.0 - 3.7) AV Cusp: 1.2 cm (1.5 - 2.6) LA Diam: 3.9 cm (2.7 - 3.8) MV EXCURSION: 19.089 mm (> 18.000) MV EF SLOPE: 80 mm/s (70 - 150) EPSS: 0.5 cm MV E Clemente: 0.92 m/s MV A Clemente: 0.99 m/s MV E/A Ratio: 0.93 RAP: 5.00 mmHg RVSP: 47.27 mmHg FINDINGS -------- Sinus rhythm. This was a technically good study. The left ventricular size is normal. There is mild concentric left ventricular hypertrophy. Overa ll left ventricular systolic function is low-normal with, an EF between 50 - 55 %. The right ventricle is normal in size. The left atrial size is normal. LA is midly dilated 29-33ml/m2. The right atrial size is normal. There is mild aortic valve sclerosis. There is no evidence of aortic regurgitation. Mild mitral annular calcification present. Mild mitral regurgitation is present. Mild tricuspid regurgitation present. There is mild to moderate pulmonary hypertension. The right ventricular systolic pressure, as measured by Doppler, is 47.27mmHg. Trace/mild (physiologic) pulmonic regurgitation. The aortic root size is normal. There is no pericardial effusion. CONCLUSIONS -------- 1. The left ventricular size is normal. 2. There is mild concentric left ventricular hypertrophy. 3. Overall left ventricular systolic function is low-normal with, an EF between 50 - 55 %. 4. The right ventricle is normal in size. 5. The left atrial size is normal. 6. LA is midly dilated 29-33ml/m2. 7. The right atrial size is normal. 8. There is mild aortic valve sclerosis. 9. Mild mitral annular calcification present. 10. Mild mitral regurgitation is present. 11. Mild tricuspid regurgitation present. 12. There is mild to moderate pulmonary hypertension. 13. The right ventricular systolic pressure, as measured by Doppler, is 47.27mmHg. 14. Trace/mild (physiologic) pulmonic regurgitation. 15. The aortic root size is normal. 16. There is no pericardial effusion. OPERATIONAL COMMUNICATION CHIEF: Cherie Mcguire RDCS
[2018-04-11 06:54] LABS: T4, Free (Free Thyroxine) 1.58 ng/dL (0.78-2.19)
[2018-04-11] MEDS ORDERED: PANTOPRAZOLE 40 MG TABLET PO SCH (07:30)
[2018-04-11] MEDS: HEPARIN SODIUM,PORCINE 5,000 UNIT/ML 1 ML VIAL SQ SCH (08:12)
[2018-04-11] MEDS: NICOTINE 21MG/24HR PATCH TRANSDERM SCH (08:12)
[2018-04-11] MEDS: ASPIRIN 325 MG TAB PO SCH (08:12)
[2018-04-11] MEDS ORDERED: DONEPEZIL 5 MG TAB PO SCH (09:00)
[2018-04-11] MEDS ORDERED: ASPIRIN 81 MG PO SCH (09:00)
--- NOTE | 2018-04-11 09:21 | CONS ---
CONSULTATION DATE OF CONSULTATION: 04/10/2018 CHIEF COMPLAINT: Syncope. HISTORY OF PRESENT ILLNESS: Mrs Brannon is a pleasant 82-year-old female, who is being evaluated today on 04/10/2018 by the Neurology Service per the request of Dr. Negron for a syncopal spell. The patient was getting her blood drawn for a lab test when she suddenly passed out. No seizure-like activity was described. The patient does not recall the events and does not remember if she felt light-headed or any chest palpitations prior to the syncope. She denies any previous history of syncope and states that she has had her blood drawn multiple times with no syncopal or presyncopal symptoms. The patient remained unconscious for a few seconds and when she woke up, she was at her baseline. No sphincter incontinence or tongue biting occurred. In the emergency room, a CT scan of the brain was done, which showed generalized atrophy and small-vessel ischemic changes. Her CBC, cardiac enzymes and INR were normal. Her comprehensive metabolic profile showed mild renal insufficiency with a BUN of 26, a creatinine of 1.8 and mild hyperglycemia at 133. A carotid Doppler was done, which showed evidence of left internal carotid artery occlusion. The patient denies knowing of a history of any carotid disease. She was admitted for further workup and management and Vascular Surgery has been consulted. At the time of my evaluation, she is lying in her bed and appears to be in no acute distress. She denies any recurrence of any syncopal or presyncopal symptoms since her admission. PAST MEDICAL HISTORY: Transient ischemic attack, dyslipidemia, hypertension, history of tonsillectomy. SOCIAL HISTORY: The patient is a current every day smoker. She denies any alcohol or drug use. FAMILY HISTORY: Noncontributory. HOME MEDICATIONS: Reviewed in the chart. ALLERGIES: PENICILLIN and SULFA DRUGS. REVIEW OF SYSTEMS: CONSTITUTIONAL: Negative. EYES: Positive for chronic diminished vision. ENT: Negative. CARDIOVASCULAR: Negative. RESPIRATORY: Negative. NEUROLOGICAL: As mentioned above. She denies any lateralizing numbness or weakness. GASTROINTESTINAL: Negative. GENITOURINARY: Negative. PSYCHIATRIC: Negative. ENDOCRINE: Negative. MUSCULOSKELETAL: Positive for occasional joint pain. DERMATOLOGICAL: Negative. PHYSICAL EXAM: Vital signs show a temperature of 97.5, pulse 60, respirations 16, blood pressure 122/58. GENERAL APPEARANCE: The patient is a well-developed, elderly female, who appears to be in no acute distress. HEENT: Normocephalic, atraumatic, mild right eye ptosis is seen. NECK: Supple with no masses felt. Regular rate and rhythm. ABDOMEN: Nontender nondistended. Extremities showed no edema or clubbing. NEUROLOGICAL EXAM: The patient is alert, aware and oriented x3. Speech and language are normal. No lateralizing weakness is seen. Sensory exam was normal to light touch in all 4 extremities. No tremors or seizure-like activity is seen. Cranial nerve testing showed no abnormalities except for mild right eye ptosis. IMPRESSION: 1. Syncopal spell. 2. Left internal carotid artery occlusion. 3. Renal insufficiency. 4. Right eye ptosis. RECOMMENDATION: The patient does appear to have suffered a true syncopal episode. No seizure-like activity was described. An EEG has been ordered. Her symptoms may have been due to a cardiac event. Continue telemetry monitoring and I do recommend a Cardiology consultation. The patient also has renal insufficiency on this admission which could be due to dehydration. She may have had presyncopal symptoms without recalling them. I do recommend IV hydration. As for her carotid Doppler results, I will order a CT angiogram of the neck to be done tomorrow if her BUN and creatinine improve by then. Vascular Surgery has been consulted. I will order a basic metabolic profile for the morning. Continue neuro checks. I will continue to follow with you. Further recommendations to follow. Thank you for allowing me to participate in the care of your patient. If you have any questions, please feel free to contact me. MMODL / IJN: [id number] /
--- NOTE | 2018-04-11 09:27 | PN ---
PROGRESS NOTE This is an 82-year-old female known to me from the office. Patient came with history of syncopal episode with collapse. Patient was brought in and she had a stroke workup. No evidence of amaurosis fugax. No evidence of any motor deficit. We did ultrasound in the hospital, found to have left side totally occluded. I have reviewed the chart from my office. Patient has long-standing history of left carotid artery total occlusion. At this point, there is no indication for any surgical intervention. The patient does not need any CT angiography. This is a chronic occlusion of the left carotid artery. Plan is patient can go home on antiplatelet therapy and will follow in my office in a month. MMODL / IJN: [id number] /
[2018-04-11 10:43] VITALS: RESP 16
[2018-04-11] MEDS ORDERED: amLODIPine 5 MG TAB PO SCH (11:00)
[2018-04-11] MEDS: SODIUM CHLORIDE 0.9% 1,000 ML IV SCH (12:23)
[2018-04-11 12:26] VITALS: BP 160/75; PULSE 74; TEMP 98
--- NOTE | 2018-04-11 12:26 | P.DS ---
Providers Date of admission: 04/09/18 20:37 Expected date of discharge: 04/11/18 Attending physician: Mau Negron Consults: 04/09/18 20:37 Consult Physician Urgent Consulting Provider: [facility] Consult Reason/Comments: Syncope Do you want consulting provider notified?: Yes 04/10/18 14:52 Consult Physician Routine Consulting Provider: Kan Quinn Consult Reason/Comments: occlusion of the proximal internal carotid atery on the left Do you want consulting provider notified?: Yes 04/10/18 15:08 Consult Physician Routine Consulting Provider: Sylvester Shah Consult Reason/Comments: syncopal episode, history of stroke Do you want consulting provider notified?: Yes Primary care physician: Ana Baxter Hospital Course: Discharge Diagnosis 1. Syncopal event: Cardiology consulted, believes it could be a vasovagal episode. Carotid ultrasound, orthostatic blood pressures, and 2-D echo have been ordered per cardiology. Patient to follow up with cardiology OP. Discussed case with Dr. Da Silva per cardiology, meteropol resumed at lower dose. Furesomide, Ramipril and meclizine are on hold due to vasovagal/hypotensive event. Blood pressure to be closely monitored by PCP 2. Left carotid artery total occlusion- she will be managed outpatient per Dr. Quinn and will go home on 325 mg of aspirin 3. History of CVA continue aspirin 3. History of hyperlipidemia continue Lipitor 4. History of hypothyroidism continue Synthroid and check TSH and T4 levels. 5. Nicotine dependence. Discussed greater than 5 minutes smoking cessation. Discharged with nicotine patch order 6. History of hypertension. Resume Norvasc. Discussed case with cardiology. Metroprolol also resumed at lower dose. Ramipril and Lasix currently on hold. Will be followed by cardiology outpatient 7. Chronic kidney disease stage IV Neurology workup complete. Head CT showing age-related atrophic and chronic small vessel ischemic changes without acute intracranial process. EEG will be completed prior to discharge. Patient will follow up with neurology outpatient Hospital Course This is an 82-year-old female patient of Dr. Baxter who presented to the emergency department after she had a syncopal episode with collapse. And states she was waiting in line to get her blood drawn when she passed out. Patient states she had no memory of the event. Patient states she does have a history of CVA a few years ago. Other history includes hyperlipidemia, hypertension, renal disease. Patient is a current every day smoker. Patient denies any lightheadedness headache or neuro symptoms at this time. Denies losing bowel or bladder function during event. Denies pain or shortness of breath at this time. Chest x-ray completed in emergency department showing pleural scarring. Mild pulmonary fibrosis. No active cardiopulmonary disease no significant change. EKG showed sinus bradycardia. Cardiology has been consulted. A Carotid ultrasound, orthostatic blood pressures, and 2-D echo have been ordered. Patient has been cleared for discharge by consulting physicians. Patient to follow-up with primary care provider in 1-3 days. Patient Condition at Discharge: Stable Plan - Discharge Summary Discharge Rx Participant: Yes New Discharge Prescriptions: New Aspirin 325 mg PO DAILY #30 tab Nicotine 21Mg/24Hr Patch [Habitrol] 1 patch TRANSDERM DAILY #30 patch Metoprolol Succinate (ER) [Toprol XL] 25 mg PO DAILY #30 tab Continue Levothyroxine Sodium [Synthroid] 88 mcg PO DAILY Pantoprazole Sodium 40 mg PO DAILY Donepezil HCl 5 mg PO DAILY Ergocalciferol [Vitamin D2 (DRISDOL)] 50,000 unit PO Q30D Atorvastatin [Lipitor] 40 mg PO HS amLODIPine [Norvasc] 5 mg PO DAILY Discontinued Meclizine HCl 12.5 mg PO BID Metoprolol Succinate [Toprol XL] 25 mg PO BID Furosemide 20 mg PO DAILY Ramipril [Altace] 2.5 mg PO DAILY Aspirin [Adult Low Dose Aspirin EC] 81 mg PO DAILY Discharge Medication List Donepezil HCl 5 mg PO DAILY 08/03/15 [History] Ergocalciferol [Vitamin D2 (DRISDOL)] 50,000 unit PO Q30D 08/03/15 [History] Levothyroxine Sodium [Synthroid] 88 mcg PO DAILY 08/03/15 [History] Pantoprazole Sodium 40 mg PO DAILY 08/03/15 [History] Atorvastatin [Lipitor] 40 mg PO HS 01/13/17 [History] amLODIPine [Norvasc] 5 mg PO DAILY 04/09/18 [History] Aspirin 325 mg PO DAILY #30 tab 04/11/18 [Rx] Metoprolol Succinate (ER) [Toprol XL] 25 mg PO DAILY #30 tab 04/11/18 [Rx] Nicotine 21Mg/24Hr Patch [Habitrol] 1 patch TRANSDERM DAILY #30 patch 04/11/18 [ Rx] Follow up Appointment(s)/Referral(s): Sylvester Shah MD [STAFF PHYSICIAN] - 1 Week Kan Quinn MD [STAFF PHYSICIAN] - 4 Weeks Ana Baxter DO [Primary Care Provider] - 1-2 days Linus Lawton MD [STAFF PHYSICIAN] - 1 Week Activity/Diet/Wound Care/Special Instructions: Diet: heart healthy Activity: As tolerated
--- NOTE | 2018-04-11 14:13 | P.PN ---
Subjective Progress Note Date: 04/11/18 This is an 82-year-old female patient of Dr. Baxter who presented to the emergency department after she had a syncopal episode with collapse. And states she was waiting in line to get her blood drawn when she passed out. Patient states she had no memory of the event. Patient states she does have a history of CVA a few years ago. Other history includes hyperlipidemia, hypertension, renal disease. Patient is a current every day smoker. Patient denies any lightheadedness headache or neuro symptoms at this time. Denies losing bowel or bladder function during event. Denies pain or shortness of breath at this time. Chest x-ray completed in emergency department showing pleural scarring. Mild pulmonary fibrosis. No active cardiopulmonary disease no significant change. EKG showed sinus bradycardia. Patient denied any chest discomfort. Blood pressure 148/70 with a heart rate in the 60s, 93% on room air. White blood cell count 6.4, [id number], white count to 10, sodium 141 , potassium 4.3, BUN 21, creatinine improved to 1.4. No evidence of any significant tachycardia or bradycardia arrhythmias, no orthostatics. From cardiology's perspective, she may be able to be discharged once cleared by primary and we will follow her up in the office post discharge. Objective - Vital Signs Vital signs: Vital Signs Temp 98 F 04/11/18 12:00 Pulse 74 04/11/18 12:00 Resp 16 04/11/18 12:00 BP 160/75 04/11/18 12:00 Pulse Ox 92 L 04/11/18 12:00 Intake & Output 04/10/18 04/11/18 04/11/18 18:59 06:59 18:59 Intake Total 240 240 360 Output Total 0 Balance 240 240 360 Weight 63.6 kg Intake: Oral 240 240 360 Output: Urine 0 Other: Voiding Method Toilet Toilet Diaper Diaper # Voids 1 2 # Bowel Movements 0 - Exam Head normocephalic Neck supple Lungs clear to auscultation bilaterally no wheezing or crackles Heart regular rate and rhythm S1-S2, no rub or gallop Abdomen is soft nontender nondistended positive bowel sounds no hepatosplenomegaly Extremities no edema Neuro alert and orientated to 3 - Labs CBC & Chem 7: 04/11/18 05:55 04/11/18 05:55 Labs: Abnormal Lab Results - Last 24 Hours (Table) 04/10/18 04/10/18 04/11/18 Range/Units 06:03 06:03 05:55 RBC 3.69 L (3.80-5.40) m/uL Chloride (98-107) mmol/L BUN (7-17) mg/dL Creatinine (0.52-1.04) mg/dL Calcium (8.4-10.2) mg/dL Alkaline Phosphatase (38-126) U/L Total Creatine Kinase 28 L (30-135) U/L Total Protein (6.3-8.2) g/dL Albumin (3.5-5.0) g/dL Triglycerides 154 H (<150) mg/dL HDL Cholesterol 25 L (40-60) mg/dL 04/11/18 Range/Units 05:55 RBC (3.80-5.40) m/uL Chloride 109 H (98-107) mmol/L BUN 21 H (7-17) mg/dL Creatinine 1.43 H (0.52-1.04) mg/dL Calcium 8.3 L (8.4-10.2) mg/dL Alkaline Phosphatase 35 L (38-126) U/L Total Creatine Kinase (30-135) U/L Total Protein 4.7 L (6.3-8.2) g/dL Albumin 2.6 L (3.5-5.0) g/dL Triglycerides (<150) mg/dL HDL Cholesterol (40-60) mg/dL Assessment and Plan Plan: Assessment: 1. Syncopal event, likely vasovagal in nature 2. History of CVA 3. History of hyperlipidemia 4. History of hypothyroidism 5. Nicotine dependence. 6. History of hypertension 7. Chronic kidney disease stage IV. plan Cardiology's perspective, patient may be able to be discharged home once cleared by primary. We'll make a follow-up appointment in the office post discharge. DNP note has been reviewed, I agree with a documented findings and plan of care. Patient was seen and examined.
--- NOTE | 2018-04-12 11:19 | EEG ---
ELECTROENCEPHALOGRAM REPORT DATE OF SERVICE: 04/11/2018 REASON FOR TESTING: Syncope. DESCRIPTION OF THE PROCEDURE: This EEG was performed using a 21 channel digital electroencephalograph, following international 10-20 system. DESCRIPTION OF THE RECORDING: From the beginning of the tracing, and with the patient's eyes closed, the background rhythm was mostly consisting of 8 Hz alpha frequency in the posterior occipital leads. No obvious asymmetry is seen. Occasional muscle artifacts are seen. Photic stimulation was performed with a minimal driving response seen. No pathological waves were elicited. Hyperventilation was not performed. Later in the tracing, the patient does reach stage II of sleep, and occasional sleep spindles are seen. No epileptiform discharges were seen. Her EKG lead showed a regular rate and rhythm. INTERPRETATION: This asleep and awake EEG can be considered within normal limits. There is no asymmetry seen. No epileptiform discharges were noticed. The absence of epileptiform discharges does not rule out the diagnosis of epilepsy; therefore clinical correlation is recommended. SHARON / BALBIR: [id number] /
== END 2018-04-11 15:03 | disposition home or self-care (01) | DRG 312 ==
LOC: EC 18:23 → 6SEL 20:37
PROVIDERS: ADMIT Internal Medicine; ATTEND Internal Medicine
DX: R55 Syncope and collapse (principal); N18.4 Chronic kidney disease, stage 4 (severe); K80.20 Calculus of gallbladder without cholecystitis without obstruction; I65.23 Occlusion and stenosis of bilateral carotid arteries; R73.9 Hyperglycemia, unspecified; E03.9 Hypothyroidism, unspecified; E78.5 Hyperlipidemia, unspecified; H02.401 Unspecified ptosis of right eyelid; I12.9 Hypertensive chronic kidney disease with stage 1 through stage 4 chronic kidney disease, or unspecified chronic kidney disease; J84.10 Pulmonary fibrosis, unspecified; J98.4 Other disorders of lung; F17.210 Nicotine dependence, cigarettes, uncomplicated; R01.1 Cardiac murmur, unspecified; N28.9 Disorder of kidney and ureter, unspecified; E86.0 Dehydration; I69.911 Memory deficit following unspecified cerebrovascular disease; I69.998 Other sequelae following unspecified cerebrovascular disease; I73.9 Peripheral vascular disease, unspecified; Z71.6 Tobacco abuse counseling; Z79.82 Long term (current) use of aspirin; Z79.899 Other long term (current) drug therapy; Z79.890 Hormone replacement therapy; Z88.0 Allergy status to penicillin; Z88.2 Allergy status to sulfonamides
CPT/HCPCS: 36415; 70450; 71046; 80053; 80061; 82550; 82553; 83735; 84439; 84443; 84484; 85025; 85610; 85730; 93005; 93306; 93880; 95819; 99285

== ENCOUNTER 2019-08-12 09:33 | Emergency (ER) | payer MEDICARE, BC ==
[2019-08-12 10:26] VITALS: TEMP 98.5
[2019-08-12 11:08] LABS: Basophils # (A) 0.1 k/uL (0-0.2); Basophils % (A) 1 %; Eosinophils # (A) 0.1 k/uL (0-0.7); Eosinophils % (A) 2 %; HCT 44.5 % (34.0-46.0); HGB 15.5 gm/dL (11.4-16.0); Lymphocytes # (A) 1.1 k/uL (1.0-4.8); Lymphocytes % (A) 13 %; MCH 33.9 pg (25.0-35.0); MCHC 34.8 g/dL (31.0-37.0); MCV 97.5 fL (80.0-100.0); Mean Platelet Volume 7.2; Monocytes # (A) 0.3 k/uL (0-1.0); Monocytes % (A) 4 %; Neutrophils # (A) 6.3 k/uL (1.3-7.7); Neutrophils % (A) 80 %; Platelet Count 193 k/uL (150-450); RBC 4.56 m/uL (3.80-5.40); RDW 12.6 % (11.5-15.5); WBC 7.9 k/uL (3.8-10.6)
--- NOTE | 2019-08-12 11:10 | XR ---
EXAMINATION TYPE: XR chest 2V DATE OF EXAM: 08/12/2019 COMPARISON: 04/09/2018 HISTORY: Chest pain and persistent cough TECHNIQUE: Frontal and lateral views of the chest are obtained. FINDINGS: There is no focal air space opacity, pleural effusion, or pneumothorax seen. Pulmonary hyp erinflation with flattening of the diaphragms is indicative of underlying COPD. The cardiac silhouett e size is within normal limits. The osseous structures are intact. Generalized osseous demineraliza tion and mild degenerative changes of the spine. Diffuse interstitial prominence is similar to the pr ior. Biapical calcific pleural parenchymal scarring. IMPRESSION: No acute cardiopulmonary process. Chronic interstitial prominence. Component of intersti tial lung disease or early fibrosis is possible. Underlying COPD.
[2019-08-12 11:18] LABS: Calcium 9.2 mg/dL (8.4-10.2); Potassium 4.5 mmol/L (3.5-5.1); Total Bilirubin 0.9 mg/dL (0.2-1.3); Total Protein 7.1 g/dL (6.3-8.2)
[2019-08-12 11:24] LABS: Partial Thromboplastin Time 22.9 sec (22.0-30.0); Prothrombin Time 10.3 sec (9.0-12.0)
[2019-08-12 12:14] VITALS: BP 125/59
[2019-08-12 13:13] VITALS: PULSE 46; RESP 18
--- NOTE | 2019-08-12 13:21 | ED ---
General Adult HPI - General Chief complaint: Recheck/Abnormal Lab/Rx Stated complaint: Rt leg numbness/dizzy Time Seen by Provider: 08/12/19 09:40 Source: patient, family, RN notes reviewed Mode of arrival: wheelchair Limitations: altered mental status - History of Present Illness Initial comments: This 83-year-old female was brought in by family due to some numbness to the right leg. He does have a history dementia does have history of smoking the f aarony did notice the patient's feet felt cold. No focal weakness who were concerned about a stroke and she did have a history of this in the past. No head neck or back pain reported no falls reported. No other symptoms reported. - Related Data Home Medications Medication Instructions Recorded Confirmed Donepezil HCl 5 mg PO HS 08/03/15 08/12/19 Ergocalciferol [Vitamin D2 50,000 unit PO Q30D 08/03/15 08/12/19 (DRISDOL)] Levothyroxine Sodium [Synthroid] 88 mcg PO QAM 08/03/15 08/12/19 Pantoprazole Sodium 40 mg PO DAILY 08/03/15 08/12/19 Atorvastatin [Lipitor] 40 mg PO HS 01/13/17 08/12/19 Memantine [Namenda] 10 mg PO BID 10/10/18 08/12/19 Metoprolol Succinate (ER) [Toprol 25 mg PO DAILY 10/10/18 08/12/19 XL] Verapamil HCl [Calan] 80 mg PO BID 10/10/18 08/12/19 Aspirin EC [Ecotrin Low Dose] 81 mg PO DAILY 08/12/19 08/12/19 Cholecalciferol (Vitamin D3) 2,000 unit PO Q48H 08/12/19 08/12/19 [Vitamin D3] Fel[place]-3 Fatty Acids [Felda-3] 1,000 mg PO Q48H 08/12/19 08/12/19 Ramipril [Altace] 2.5 mg PO DAILY 08/12/19 08/12/19 Spectra Vit 1 tab PO Q48H 08/12/19 08/12/19 Allergies Allergy/AdvReac Type Severity Reaction Status Date / Time Penicillins Allergy Unknown Verified 08/12/19 10:18 Sulfa (Sulfonamide Allergy Unknown Verified 08/12/19 10:18 Antibiotics) Review of Systems ROS Statement: Those systems with pertinent positive or pertinent negative responses have been documented in the HPI. ROS Other: All systems not noted in ROS Statement are negative. Past Medical History Past Medical History: CVA/TIA, Dementia, Hearing Disorder / Deafness, Hyperlipidemia, Hypertension, Renal Disease, Syncope, Thyroid Disorder Additional Past Medical History / Comment(s): CVA "FEW YRS AGO"-WALKS WITH CANE- HAS BALANCE PROBLEMS-,SOB, STONES IN GALLBLADDER AND BILE DUCT. Stage 4 kidney disease. Hard of hearing bilaterally. History of Any Multi-Drug Resistant Organisms: None Reported Past Surgical History: Tonsillectomy Past Anesthesia/Blood Transfusion Reactions: No Reported Reaction Past Psychological History: No Psychological Hx Reported Smoking Status: Current every day smoker Past Alcohol Use History: None Reported Past Drug Use History: None Reported - Past Family History Brother(s) Family Medical History: Cancer Mother History Unknown: Yes Father History Unknown: Yes General Exam - General Exam Comments Initial Comments: Is a well-developed well-nourished awake alert oriented history female was demonstrating no distress Limitations: altered mental status General appearance: alert, in no apparent distress Head exam: Present: atraumatic, normocephalic, normal inspection Eye exam: Present: normal appearance, PERRL, EOMI. Absent: scleral icterus, conjunctival injection, periorbital swelling ENT exam: Present: mucous membranes dry Neck exam: Present: normal inspection. Absent: tenderness, meningismus, lymphadenopathy Respiratory exam: Present: normal lung sounds bilaterally. Absent: respiratory distress, wheezes, rales, rhonchi, stridor Cardiovascular Exam: Present: normal rhythm, bradycardia, normal heart sounds. Absent: systolic murmur, diastolic murmur, rubs, gallop, clicks GI/Abdominal exam: Present: soft, normal bowel sounds. Absent: distended, tenderness, guarding, rebound, rigid Extremities exam: Present: normal inspection, full ROM, normal capillary refill. Absent: tenderness, pedal edema, joint swelling, calf tenderness Back exam: Present: normal inspection Neurological exam: Present: alert, oriented X3, CN II-XII intact Psychiatric exam: Present: normal affect, normal mood Skin exam: Present: warm, dry, intact, normal color. Absent: rash Course Vital Signs 08/12/19 08/12/19 08/12/19 09:34 09:41 09:59 Temperature 97.7 F 98.5 F Pulse Rate 58 L 58 L Respiratory 18 20 18 Rate Blood Pressure 173/72 O2 Sat by Pulse 94 L Oximetry 08/12/19 08/12/19 08/12/19 10:00 11:00 12:00 Temperature Pulse Rate 56 L 48 L Respiratory 16 16 Rate Blood Pressure 145/68 125/59 O2 Sat by Pulse 94 L Oximetry 08/12/19 13:00 Temperature Pulse Rate 46 L Respiratory 18 Rate Blood Pressure 125/59 O2 Sat by Pulse 96 Oximetry Procedures - Smoking Cessation Time Spent Discussing Smoking Cessation w/Patient (Minutes): 3 Patient Acknowledges Need for Cessation: No Medical Decision Making - Medical Decision Making Patient was able ambulate as per normal she did have cool feeling extremities however there patient will be discharge instructions increase oral fluids I did recommend smoking cessation. Patient is a follow-up with her doctor - Lab Data Result diagrams: 08/12/19 10:15 08/12/19 10:15 Lab Results 08/12/19 08/12/19 08/12/19 Range/Units 10:15 10:15 10:15 WBC 7.9 (3.8-10.6) k/uL RBC 4.56 (3.80-5.40) m/uL Hgb 15.5 (11.4-16.0) gm/dL Hct 44.5 (34.0-46.0) % MCV 97.5 (80.0-100.0) fL MCH 33.9 (25.0-35.0) pg MCHC 34.8 (31.0-37.0) g/dL RDW 12.6 (11.5-15.5) % Plt Count 193 (150-450) k/uL Neutrophils % 80 % Lymphocytes % 13 % Monocytes % 4 % Eosinophils % 2 % Basophils % 1 % Neutrophils # 6.3 (1.3-7.7) k/uL Lymphocytes # 1.1 (1.0-4.8) k/uL Monocytes # 0.3 (0-1.0) k/uL Eosinophils # 0.1 (0-0.7) k/uL Basophils # 0.1 (0-0.2) k/uL PT 10.3 (9.0-12.0) sec INR 1.0 (<1.2) APTT 22.9 (22.0-30.0) sec Sodium 141 (137-145) mmol/L Potassium 4.5 (3.5-5.1) mmol/L Chloride 107 (98-107) mmol/L Carbon Dioxide 24 (22-30) mmol/L Anion Gap 10 mmol/L BUN 16 (7-17) mg/dL Creatinine 1.22 H (0.52-1.04) mg/dL Est GFR (CKD-EPI)AfAm 47 (>60 ml/min/1.73 sqM) Est GFR (CKD-EPI)NonAf 41 (>60 ml/min/1.73 sqM) Glucose 148 H (74-99) mg/dL Calcium 9.2 (8.4-10.2) mg/dL Magnesium 2.0 (1.6-2.3) mg/dL Total Bilirubin 0.9 (0.2-1.3) mg/dL AST 27 (14-36) U/L ALT 16 (9-52) U/L Alkaline Phosphatase 100 (38-126) U/L Creatine Kinase 51 (30-135) U/L Troponin I (0.000-0.034) ng/mL Total Protein 7.1 (6.3-8.2) g/dL Albumin 4.0 (3.5-5.0) g/dL 08/12/19 Range/Units 10:15 WBC (3.8-10.6) k/uL RBC (3.80-5.40) m/uL Hgb (11.4-16.0) gm/dL Hct (34.0-46.0) % MCV (80.0-100.0) fL MCH (25.0-35.0) pg MCHC (31.0-37.0) g/dL RDW (11.5-15.5) % Plt Count (150-450) k/uL Neutrophils % % Lymphocytes % % Monocytes % % Eosinophils % % Basophils % % Neutrophils # (1.3-7.7) k/uL Lymphocytes # (1.0-4.8) k/uL Monocytes # (0-1.0) k/uL Eosinophils # (0-0.7) k/uL Basophils # (0-0.2) k/uL PT (9.0-12.0) sec INR (<1.2) APTT (22.0-30.0) sec Sodium (137-145) mmol/L Potassium (3.5-5.1) mmol/L Chloride (98-107) mmol/L Carbon Dioxide (22-30) mmol/L Anion Gap mmol/L BUN (7-17) mg/dL Creatinine (0.52-1.04) mg/dL Est GFR (CKD-EPI)AfAm (>60 ml/min/1.73 sqM) Est GFR (CKD-EPI)NonAf (>60 ml/min/1.73 sqM) Glucose (74-99) mg/dL Calcium (8.4-10.2) mg/dL Magnesium (1.6-2.3) mg/dL Total Bilirubin (0.2-1.3) mg/dL AST (14-36) U/L ALT (9-52) U/L Alkaline Phosphatase (38-126) U/L Creatine Kinase (30-135) U/L Troponin I <0.012 (0.000-0.034) ng/mL Total Protein (6.3-8.2) g/dL Albumin (3.5-5.0) g/dL - Radiology Data Radiology results: report reviewed (Imaging reviewed no acute findings), image reviewed Disposition Clinical Impression: Paresthesia of right leg, Dehydration, Smoking Disposition: HOME SELF-CARE Condition: Good Instructions (If sedation given, give patient instructions): How to Stop Smoking (ED), Dehydration (ED), Paresthesia (ED) Is patient prescribed a controlled substance at d/c from ED?: No Referrals: Ana Baxter DO [Primary Care Provider] - 1-2 days
== END 2019-08-12 13:33 | disposition home or self-care (01) ==
LOC: EC 09:33
DX: E86.0 Dehydration (principal); R20.0 Anesthesia of skin; F03.90 Unspecified dementia, unspecified severity, without behavioral disturbance, psychotic disturbance, mood disturbance, and anxiety; F17.200 Nicotine dependence, unspecified, uncomplicated; H91.93 Unspecified hearing loss, bilateral; E78.5 Hyperlipidemia, unspecified; J44.9 Chronic obstructive pulmonary disease, unspecified; E07.9 Disorder of thyroid, unspecified; I12.9 Hypertensive chronic kidney disease with stage 1 through stage 4 chronic kidney disease, or unspecified chronic kidney disease; N18.4 Chronic kidney disease, stage 4 (severe); Z71.6 Tobacco abuse counseling; Z79.82 Long term (current) use of aspirin; Z79.890 Hormone replacement therapy; Z79.899 Other long term (current) drug therapy; Z88.0 Allergy status to penicillin; Z88.2 Allergy status to sulfonamides; Z86.73 Personal history of transient ischemic attack (TIA), and cerebral infarction without residual deficits; Z99.89 Dependence on other enabling machines and devices
CPT/HCPCS: 36415; 71046; 80053; 82550; 83735; 84484; 85025; 85610; 85730; 93005; 99284

== ENCOUNTER 2019-09-26 00:53 | Emergency (ER) | payer MEDICARE, BC ==
[2019-09-26 01:09] LABS: Glucose,Whole Blood 51 mg/dL (75-99)
[2019-09-26 01:17] LABS: Glucose,Whole Blood 115 mg/dL (75-99)
[2019-09-26 01:51] LABS: Basophils # (A) 0.1 k/uL (0-0.2); Basophils % (A) 1 %; Eosinophils # (A) 0.4 k/uL (0-0.7); Eosinophils % (A) 4 %; HCT 44.3 % (34.0-46.0); HGB 14.7 gm/dL (11.4-16.0); Lymphocytes # (A) 2.8 k/uL (1.0-4.8); Lymphocytes % (A) 33 %; MCH 32.1 pg (25.0-35.0); MCHC 33.2 g/dL (31.0-37.0); MCV 96.9 fL (80.0-100.0); Mean Platelet Volume 8.7; Monocytes # (A) 0.4 k/uL (0-1.0); Monocytes % (A) 4 %; Neutrophils # (A) 4.8 k/uL (1.3-7.7); Neutrophils % (A) 56 %; Platelet Count 190 k/uL (150-450); RBC 4.57 m/uL (3.80-5.40); RDW 12.4 % (11.5-15.5); WBC 8.6 k/uL (3.8-10.6)
--- NOTE | 2019-09-26 02:01 | XR ---
EXAMINATION TYPE: XR chest 2V DATE OF EXAM: 09/26/2019 COMPARISON: 08/12/2019 HISTORY: Chest pain TECHNIQUE: 2 views FINDINGS: There is no heart failure. There is calcified pleural plaque in the upper lung humphries. Ther e are no hilar masses. Costophrenic angles are clear. There are chest leads. IMPRESSION: No active cardiopulmonary disease. Pleural and pulmonary scarring in the upper lobes unch anged.
[2019-09-26 02:08] LABS: Partial Thromboplastin Time 22.1 sec (22.0-30.0); Prothrombin Time 10.5 sec (9.0-12.0)
[2019-09-26 02:18] LABS: Albumin 3.6 g/dL (3.5-5.0); Calcium 9.2 mg/dL (8.4-10.2); Potassium 4.5 mmol/L (3.5-5.1); Total Bilirubin 0.6 mg/dL (0.2-1.3); Total Protein 6.5 g/dL (6.3-8.2)
[2019-09-26 02:18] LABS: Glucose,Whole Blood 135 mg/dL (75-99)
[2019-09-26 03:19] LABS: Appearance,Urine Cloudy (Clear); Bacteria,Urine Moderate /hpf; Bilirubin,Urine Negative (Negative); Blood,Urine Trace (Negative); Color,Urine Yellow; Glucose,Urine (UA) Negative (Negative); Hyaline Casts,Urine 36 /lpf (0-2); Ketones,Urine Negative (Negative); Leukocyte Esterase,Urine Small (Negative); Mucus,Urine Few /hpf; Nitrite,Urine Positive (Negative); PH, Urine 5.5 (5.0-8.0); Protein,Urine 1+ (Negative); RBC,Urine 24 /hpf (0-5); Specific Gravity,Urine 1.026 (1.001-1.035); Squamous Epithelial Cell,Urine 14 /hpf (0-4)
[2019-09-26] MEDS ORDERED: NITROFURANTOIN MONOHYD/M-CRYST 100 MG CAP PO STA (03:23)
--- NOTE | 2019-09-26 03:25 | ED ---
Dizziness HPI - General Chief Complaint: Syncope Stated Complaint: Syncope Time Seen by Provider: 09/26/19 00:57 Source: EMS Mode of arrival: EMS Limitations: altered mental status - History of Present Illness Initial Comments: this patient is an 84-year-old woman with history of some underlying dementia, brought to be evaluated after she was confused and disoriented at home. History is from the patient's daughter. The patient had been in bed, and then the patient's daughter heard a thud and found that the patient had fallen. The patient was confused and disoriented so EMS was called. The patient was found to be hypoglycemic on arrival blood sugar just above 50. She was given dextrose. By the time I had seen the patient, she appeared to be more as her usual self per the patient's daughter. The patient is denying complaints states she is not aware she is here. Patient denies pain. No dyspnea. The patient had not been having any symptoms of infection, denying vomiting or diarrhea. No change in urination. No cough or upper respiratory symptoms. MD Complaint: dizziness, other (confusion) -: minutes(s) Timing: sudden onset Description: off-balance, difficulty walking History of Same: No History of Trauma: No Severity: moderate Worsens With: movement Associated Symptoms: confusion - Related Data Home Medications Medication Instructions Recorded Confirmed Donepezil HCl 5 mg PO HS 08/03/15 08/12/19 Ergocalciferol [Vitamin D2 50,000 unit PO Q30D 08/03/15 08/12/19 (DRISDOL)] Levothyroxine Sodium [Synthroid] 88 mcg PO QAM 08/03/15 08/12/19 Pantoprazole Sodium 40 mg PO DAILY 08/03/15 08/12/19 Atorvastatin [Lipitor] 40 mg PO HS 01/13/17 08/12/19 Memantine [Namenda] 10 mg PO BID 10/10/18 08/12/19 Metoprolol Succinate (ER) [Toprol 25 mg PO DAILY 10/10/18 08/12/19 XL] Verapamil HCl [Calan] 80 mg PO BID 10/10/18 08/12/19 Aspirin EC [Ecotrin Low Dose] 81 mg PO DAILY 08/12/19 08/12/19 Cholecalciferol (Vitamin D3) 2,000 unit PO Q48H 08/12/19 08/12/19 [Vitamin D3] [place]-3 Fatty Acids [[place]-3] 1,000 mg PO Q48H 08/12/19 08/12/19 Ramipril [Altace] 2.5 mg PO DAILY 08/12/19 08/12/19 Spectra Vit 1 tab PO Q48H 08/12/19 08/12/19 Previous Rx's Medication Instructions Recorded Nitrofurantoin Monohyd/M-Cryst 100 mg PO Q12HR #6 cap 09/26/19 [Macrobid] Allergies Allergy/AdvReac Type Severity Reaction Status Date / Time Penicillins Allergy Unknown Verified 09/26/19 01:09 Sulfa (Sulfonamide Allergy Unknown Verified 09/26/19 01:09 Antibiotics) Review of Systems ROS Statement: Those systems with pertinent positive or pertinent negative responses have been documented in the HPI. ROS Other: All systems not noted in ROS Statement are negative. 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 Stage 4 kidney disease. Hard of hearing bilaterally. History of Any Multi-Drug Resistant Organisms: None Reported Past Surgical History: Tonsillectomy Past Anesthesia/Blood Transfusion Reactions: No Reported Reaction Past Psychological History: No Psychological Hx Reported Smoking Status: Current every day smoker Past Alcohol Use History: None Reported Past Drug Use History: None Reported - Past Family History Brother(s) Family Medical History: Cancer Mother History Unknown: Yes Father History Unknown: Yes General Exam Limitations: altered mental status General appearance: alert, in no apparent distress Head exam: Present: atraumatic, normocephalic Eye exam: Present: normal appearance, PERRL, EOMI. Absent: scleral icterus, conjunctival injection ENT exam: Present: normal oropharynx Neck exam: Present: normal inspection, full ROM. Absent: tenderness Respiratory exam: Present: normal lung sounds bilaterally. Absent: respiratory distress, wheezes, rales, rhonchi, stridor, chest wall tenderness Cardiovascular Exam: Present: normal rhythm, bradycardia, normal heart sounds. Absent: systolic murmur, diastolic murmur, rubs, gallop GI/Abdominal exam: Present: soft. Absent: distended, tenderness, guarding, rebound, mass Extremities exam: Present: normal inspection, normal capillary refill. Absent: pedal edema, calf tenderness Back exam: Present: normal inspection. Absent: CVA tenderness (R), CVA tenderness (L), vertebral tenderness Neurological exam: Present: alert, CN II-XII intact. Absent: oriented X3 ( but couldn't state the date.), motor sensory deficit Skin exam: Present: warm, dry, intact, normal color. Absent: rash Course Vital Signs 09/26/19 09/26/19 09/26/19 01:05 01:18 02:19 Temperature 97.6 F Pulse Rate 50 L 48 L 51 L Respiratory 15 18 16 Rate Blood Pressure 150/90 159/78 155/76 O2 Sat by Pulse 98 99 99 Oximetry 09/26/19 03:39 Temperature 97.9 F Pulse Rate 45 L Respiratory 14 Rate Blood Pressure 147/64 O2 Sat by Pulse 94 L Oximetry Medical Decision Making - Medical Decision Making the patient is reevaluated following studies and continue state that she is feeling well. She would like to go home. Discussed results with patient and family and they would like to try going but they do have a low threshold to return. Discussed appropriate follow-up as well as return parameters. - Lab Data Result diagrams: 09/26/19 01:15 09/26/19 01:15 Lab Results 09/26/19 09/26/19 09/26/19 Range/Units 01:01 01:15 01:15 WBC 8.6 (3.8-10.6) k/uL RBC 4.57 (3.80-5.40) m/uL Hgb 14.7 (11.4-16.0) gm/dL Hct 44.3 (34.0-46.0) % MCV 96.9 (80.0-100.0) fL MCH 32.1 (25.0-35.0) pg MCHC 33.2 (31.0-37.0) g/dL RDW 12.4 (11.5-15.5) % Plt Count 190 (150-450) k/uL Neutrophils % 56 % Lymphocytes % 33 % Monocytes % 4 % Eosinophils % 4 % Basophils % 1 % Neutrophils # 4.8 (1.3-7.7) k/uL Lymphocytes # 2.8 (1.0-4.8) k/uL Monocytes # 0.4 (0-1.0) k/uL Eosinophils # 0.4 (0-0.7) k/uL Basophils # 0.1 (0-0.2) k/uL PT (9.0-12.0) sec INR (<1.2) APTT (22.0-30.0) sec Sodium 140 (137-145) mmol/L Potassium 4.5 (3.5-5.1) mmol/L Chloride 110 H (98-107) mmol/L Carbon Dioxide 25 (22-30) mmol/L Anion Gap 5 mmol/L BUN 20 H (7-17) mg/dL Creatinine 1.22 H (0.52-1.04) mg/dL Est GFR (CKD-EPI)AfAm 47 (>60 ml/min/1.73 sqM) Est GFR (CKD-EPI)NonAf 41 (>60 ml/min/1.73 sqM) Glucose 104 H (74-99) mg/dL POC Glucose (mg/dL) 51 L (75-99) mg/dL POC Glu Compensation Programs Manager ID Emily, Mesha Calcium 9.2 (8.4-10.2) mg/dL Total Bilirubin 0.6 (0.2-1.3) mg/dL AST 20 (14-36) U/L ALT 14 (4-34) U/L Alkaline Phosphatase 95 (38-126) U/L Troponin I (0.000-0.034) ng/mL Total Protein 6.5 (6.3-8.2) g/dL Albumin 3.6 (3.5-5.0) g/dL Urine Color Urine Appearance (Clear) Urine pH (5.0-8.0) Ur Specific [place] (1.001-1.035) Urine Protein (Negative) Urine Glucose (UA) (Negative) Urine Ketones (Negative) Urine Blood (Negative) Urine Nitrite (Negative) Urine Bilirubin (Negative) Urine Urobilinogen (<2.0) mg/dL Ur Leukocyte Esterase (Negative) Urine RBC (0-5) /hpf Urine WBC (0-5) /hpf Urine WBC Clumps (None) /hpf Ur Squamous Epith Cells (0-4) /hpf Urine Bacteria (None) /hpf Hyaline Casts (0-2) /lpf Urine Mucus (None) /hpf 09/26/19 09/26/19 09/26/19 Range/Units 01:15 01:15 01:16 WBC (3.8-10.6) k/uL RBC (3.80-5.40) m/uL Hgb (11.4-16.0) gm/dL Hct (34.0-46.0) % MCV (80.0-100.0) fL MCH (25.0-35.0) pg MCHC (31.0-37.0) g/dL RDW (11.5-15.5) % Plt Count (150-450) k/uL Neutrophils % % Lymphocytes % % Monocytes % % Eosinophils % % Basophils % % Neutrophils # (1.3-7.7) k/uL Lymphocytes # (1.0-4.8) k/uL Monocytes # (0-1.0) k/uL Eosinophils # (0-0.7) k/uL Basophils # (0-0.2) k/uL PT 10.5 (9.0-12.0) sec INR 1.0 (<1.2) APTT 22.1 (22.0-30.0) sec Sodium (137-145) mmol/L Potassium (3.5-5.1) mmol/L Chloride (98-107) mmol/L Carbon Dioxide (22-30) mmol/L Anion Gap mmol/L BUN (7-17) mg/dL Creatinine (0.52-1.04) mg/dL Est GFR (CKD-EPI)AfAm (>60 ml/min/1.73 sqM) Est GFR (CKD-EPI)NonAf (>60 ml/min/1.73 sqM) Glucose (74-99) mg/dL POC Glucose (mg/dL) 115 H (75-99) mg/dL POC Glu Compensation Programs Manager ID Emily, Mesha Calcium (8.4-10.2) mg/dL Total Bilirubin (0.2-1.3) mg/dL AST (14-36) U/L ALT (4-34) U/L Alkaline Phosphatase (38-126) U/L Troponin I <0.012 (0.000-0.034) ng/mL Total Protein (6.3-8.2) g/dL Albumin (3.5-5.0) g/dL Urine Color Urine Appearance (Clear) Urine pH (5.0-8.0) Ur Specific [place] (1.001-1.035) Urine Protein (Negative) Urine Glucose (UA) (Negative) Urine Ketones (Negative) Urine Blood (Negative) Urine Nitrite (Negative) Urine Bilirubin (Negative) Urine Urobilinogen (<2.0) mg/dL Ur Leukocyte Esterase (Negative) Urine RBC (0-5) /hpf Urine WBC (0-5) /hpf Urine WBC Clumps (None) /hpf Ur Squamous Epith Cells (0-4) /hpf Urine Bacteria (None) /hpf Hyaline Casts (0-2) /lpf Urine Mucus (None) /hpf 09/26/19 09/26/19 Range/Units 02:17 02:40 WBC (3.8-10.6) k/uL RBC (3.80-5.40) m/uL Hgb (11.4-16.0) gm/dL Hct (34.0-46.0) % MCV (80.0-100.0) fL MCH (25.0-35.0) pg MCHC (31.0-37.0) g/dL RDW (11.5-15.5) % Plt Count (150-450) k/uL Neutrophils % % Lymphocytes % % Monocytes % % Eosinophils % % Basophils % % Neutrophils # (1.3-7.7) k/uL Lymphocytes # (1.0-4.8) k/uL Monocytes # (0-1.0) k/uL Eosinophils # (0-0.7) k/uL Basophils # (0-0.2) k/uL PT (9.0-12.0) sec INR (<1.2) APTT (22.0-30.0) sec Sodium (137-145) mmol/L Potassium (3.5-5.1) mmol/L Chloride (98-107) mmol/L Carbon Dioxide (22-30) mmol/L Anion Gap mmol/L BUN (7-17) mg/dL Creatinine (0.52-1.04) mg/dL Est GFR (CKD-EPI)AfAm (>60 ml/min/1.73 sqM) Est GFR (CKD-EPI)NonAf (>60 ml/min/1.73 sqM) Glucose (74-99) mg/dL POC Glucose (mg/dL) 135 H (75-99) mg/dL POC Glu Compensation Programs Manager ID Mesha Diaz Calcium (8.4-10.2) mg/dL Total Bilirubin (0.2-1.3) mg/dL AST (14-36) U/L ALT (4-34) U/L Alkaline Phosphatase (38-126) U/L Troponin I (0.000-0.034) ng/mL Total Protein (6.3-8.2) g/dL Albumin (3.5-5.0) g/dL Urine Color Yellow Urine Appearance Cloudy H (Clear) Urine pH 5.5 (5.0-8.0) Ur Specific [place] 1.026 (1.001-1.035) Urine Protein 1+ H (Negative) Urine Glucose (UA) Negative (Negative) Urine Ketones Negative (Negative) Urine Blood Trace H (Negative) Urine Nitrite Positive H (Negative) Urine Bilirubin Negative (Negative) Urine Urobilinogen 2.0 (<2.0) mg/dL Ur Leukocyte Esterase Small H (Negative) Urine RBC 24 H (0-5) /hpf Urine WBC 11 H (0-5) /hpf Urine WBC Clumps Rare H (None) /hpf Ur Squamous Epith Cells 14 H (0-4) /hpf Urine Bacteria Moderate H (None) /hpf Hyaline Casts 36 H (0-2) /lpf Urine Mucus Few H (None) /hpf Disposition Clinical Impression: Hypoglycemia, Urinary tract infection Disposition: HOME SELF-CARE Condition: Good Prescriptions: Nitrofurantoin Monohyd/M-Cryst [Macrobid] 100 mg PO Q12HR #6 cap Is patient prescribed a controlled substance at d/c from ED?: No Referrals: Ana Baxter DO [Primary Care Provider] - 1-2 days
[2019-09-26 03:42] VITALS: BP 147/64; PULSE 45; RESP 14; TEMP 97.9
== END 2019-09-26 03:45 | disposition home or self-care (01) ==
LOC: EC 00:53
DX: N39.0 Urinary tract infection, site not specified (principal); E16.2 Hypoglycemia, unspecified; R00.1 Bradycardia, unspecified; R26.2 Difficulty in walking, not elsewhere classified; F03.90 Unspecified dementia, unspecified severity, without behavioral disturbance, psychotic disturbance, mood disturbance, and anxiety; I69.311 Memory deficit following cerebral infarction; H91.93 Unspecified hearing loss, bilateral; E78.5 Hyperlipidemia, unspecified; I12.9 Hypertensive chronic kidney disease with stage 1 through stage 4 chronic kidney disease, or unspecified chronic kidney disease; N18.4 Chronic kidney disease, stage 4 (severe); E07.9 Disorder of thyroid, unspecified; F17.200 Nicotine dependence, unspecified, uncomplicated; Z88.0 Allergy status to penicillin; Z88.2 Allergy status to sulfonamides; Z79.82 Long term (current) use of aspirin; Z79.890 Hormone replacement therapy; Z79.899 Other long term (current) drug therapy; W19.XXXA Unspecified fall, initial encounter; Y93.89 Activity, other specified; Y92.009 Unspecified place in unspecified non-institutional (private) residence as the place of occurrence of the external cause
CPT/HCPCS: 36415; 71046; 80053; 81001; 84484; 85025; 85610; 85730; 87077; 87086; 87186; 93005; 99284

== ENCOUNTER → 2020-08-25 | Outpatient (CLI) | payer MEDICARE, BC ==
[2020-08-25 11:13] LABS: Basophils % (A) 0 %; Eosinophils # (A) 0.2 k/uL (0-0.7); Eosinophils % (A) 2 %; HCT 43.8 % (34.0-46.0); HGB 14.1 gm/dL (11.4-16.0); Lymphocytes # (A) 1.9 k/uL (1.0-4.8); Lymphocytes % (A) 22 %; MCH 32.3 pg (25.0-35.0); MCHC 32.3 g/dL (31.0-37.0); Mean Platelet Volume 8.2; Monocytes # (A) 0.6 k/uL (0-1.0); Monocytes % (A) 7 %; Neutrophils # (A) 5.8 k/uL (1.3-7.7); Neutrophils % (A) 67 %; Platelet Count 227 k/uL (150-450); RBC 4.38 m/uL (3.80-5.40); RDW 13.4 % (11.5-15.5); WBC 8.7 k/uL (3.8-10.6)
[2020-08-25 18:38] LABS: % Iron Saturation 18.42 (12.00-45.00); African American GFR (CKD) 39.3 (60.0-200.0); BUN/Creat Ratio 23.57 Ratio (12.00-20.00); Calcium 9.1 mg/dL (8.7-10.3); Magnesium 2.1 mg/dL (1.5-2.4); Non-African American GFR(CKD) 33.9 (60.0-200.0); Phosphorus 3.5 mg/dL (2.4-5.1); Potassium 4.6 mmol/L (3.5-5.5); Uric Acid 7.1 mg/dL (2.9-7.7)
[2020-08-25 18:46] LABS: Ferritin 209.9 ng/mL (10.0-291.0)
== END | disposition home or self-care (01) ==
LOC: LABWHC1 09:45
PROVIDERS: ATTEND Nurse Practitioner Family
DX: N39.0 Urinary tract infection, site not specified (principal); N18.30 Chronic kidney disease, stage 3 unspecified; D63.1 Anemia in chronic kidney disease; E55.9 Vitamin D deficiency, unspecified; N25.81 Secondary hyperparathyroidism of renal origin; M10.9 Gout, unspecified
CPT/HCPCS: 36415; 80048; 82040; 82306; 82728; 83540; 83550; 83735; 83970; 84100; 84550; 85025

== ENCOUNTER → 2020-09-03 | Outpatient (CLI) | payer MEDICARE, BC ==
[2020-09-03 15:18] LABS: Appearance,Urine Clear (Clear); Bacteria,Urine Many /hpf; Bilirubin,Urine Negative (Negative); Blood,Urine Negative (Negative); Color,Urine Yellow; Glucose,Urine (UA) Negative (Negative); Ketones,Urine Negative (Negative); Leukocyte Esterase,Urine Trace (Negative); Mucus,Urine Few /hpf; Nitrite,Urine Positive (Negative); Protein,Urine Negative (Negative); Squamous Epithelial Cell,Urine 2 /hpf (0-4); Urobilinogen,Urine <2.0 mg/dL (<2.0); WBC,Urine 3 /hpf (0-5)
[2020-09-03 18:33] LABS: Creatinine,Urine Random 59.7 mg/dL; Protein/Creatinine Ratio,Urine 0.201
[2020-09-03 20:01] LABS: African American GFR (CKD) 39.3 (60.0-200.0); Anion Gap 5.6 mmol/L (4.00-12.00); BUN/Creat Ratio 18.57 Ratio (12.00-20.00); Calcium 9.4 mg/dL (8.7-10.3); Carbon Dioxide 29.4 mmol/L (21.6-31.8); Non-African American GFR(CKD) 33.9 (60.0-200.0); Potassium 5.1 mmol/L (3.5-5.5)
== END | disposition home or self-care (01) ==
LOC: LABWHC1 14:20
PROVIDERS: ATTEND Nurse Practitioner Family
DX: N18.30 Chronic kidney disease, stage 3 unspecified (principal); E55.9 Vitamin D deficiency, unspecified; N25.81 Secondary hyperparathyroidism of renal origin; M10.9 Gout, unspecified; N39.0 Urinary tract infection, site not specified; D63.1 Anemia in chronic kidney disease
CPT/HCPCS: 36415; 80048; 81001; 82570; 84156

== ENCOUNTER 2021-06-04 12:14 | Emergency (ER) | payer MEDICARE, BC ==
[2021-06-04 12:32] VITALS: BP 171/81; RESP 20; TEMP 98.2
[2021-06-04 13:05] LABS: Basophils # (A) 0.1 k/uL (0-0.2); Basophils % (A) 1 %; Eosinophils # (A) 0.4 k/uL (0-0.7); Eosinophils % (A) 4 %; HCT 45.9 % (34.0-46.0); HGB 15.5 gm/dL (11.4-16.0); Lymphocytes # (A) 2.5 k/uL (1.0-4.8); Lymphocytes % (A) 28 %; MCH 33.1 pg (25.0-35.0); MCHC 33.7 g/dL (31.0-37.0); MCV 98.1 fL (80.0-100.0); Mean Platelet Volume 8.5; Monocytes # (A) 0.4 k/uL (0-1.0); Monocytes % (A) 5 %; Neutrophils # (A) 5.4 k/uL (1.3-7.7); Neutrophils % (A) 60 %; Platelet Count 292 k/uL (150-450); RBC 4.68 m/uL (3.80-5.40); RDW 13.8 % (11.5-15.5); WBC 8.9 k/uL (3.8-10.6)
[2021-06-04 13:23] LABS: Albumin 3.8 g/dL (3.5-5.0); Calcium 9.5 mg/dL (8.4-10.2); Total Bilirubin 0.4 mg/dL (0.2-1.3); Total Protein 6.6 g/dL (6.3-8.2)
[2021-06-04 13:26] LABS: Prothrombin Time 10.3 sec (9.0-12.0)
[2021-06-04] MEDS ORDERED: IPRATROPIUM-ALBUTEROL 3 ML NEB INHALATION STA (13:27)
[2021-06-04] MEDS ORDERED: methylPREDNISolone SOD SUCCI 125 MG/2 ML VIAL IV STA (13:28)
--- NOTE | 2021-06-04 13:33 | XR ---
EXAMINATION TYPE: XR chest 2V DATE OF EXAM: 06/04/2021 COMPARISON: Radiograph 09/26/2019 HISTORY: Shortness of breath TECHNIQUE: Frontal and lateral views of the chest are obtained. FINDINGS: Pleural calcification at the lung apices. Hyperinflated lungs with increased reticular opa city. There is no focal air space opacity, pleural effusion, or pneumothorax seen. The cardiac silho uette size is within normal limits. The osseous structures are intact. IMPRESSION: Emphysematous lungs without an acute process.
--- NOTE | 2021-06-04 13:33 | ED ---
General Adult HPI - General Chief complaint: Nausea/Vomiting/Diarrhea Stated complaint: Doesn't Feel Well Time Seen by Provider: 06/04/21 12:45 Source: patient, family, RN notes reviewed, old records reviewed Mode of arrival: wheelchair Limitations: physical limitation - History of Present Illness Initial comments: This is an 85-year-old female who presents emergency Department with a past medical history significant for kidney failure and heavy smoking. Daughter states that the mother called in the room because she didn't feel well when she asked the mother was going on the mother was not able to describe why she didn't feel well however the mother denied any pain. Daughter states she was coughing quite a bit and when she was coughing she looked short of breath so she decided to bring her to the emergency department to get looked at. Patient currently has no idea why she is here other than she states that earlier she didn't feel well but she is not able to describe how she didn't feel well. Patient denies any chest pain or shortness of breath currently. Patient denies any recent fever or chills. Patient denies any nausea vomiting or abdominal pain. At this time daughter states currently the mother looks normal. - Related Data Home Medications Medication Instructions Recorded Confirmed Donepezil HCl 5 mg PO HS 08/03/15 08/12/19 Ergocalciferol [Vitamin D2 50,000 unit PO Q30D 08/03/15 08/12/19 (DRISDOL)] Levothyroxine Sodium [Synthroid] 88 mcg PO QAM 08/03/15 08/12/19 Pantoprazole Sodium 40 mg PO DAILY 08/03/15 08/12/19 Atorvastatin [Lipitor] 40 mg PO HS 01/13/17 08/12/19 Memantine [Namenda] 10 mg PO BID 10/10/18 08/12/19 Metoprolol Succinate (ER) [Toprol 25 mg PO DAILY 10/10/18 08/12/19 XL] Verapamil HCl [Calan] 80 mg PO BID 10/10/18 08/12/19 Aspirin EC [Ecotrin Low Dose] 81 mg PO DAILY 08/12/19 08/12/19 Cholecalciferol (Vitamin D3) 2,000 unit PO Q48H 08/12/19 08/12/19 [Vitamin D3] [place]-3 Fatty Acids [[place]-3] 1,000 mg PO Q48H 08/12/19 08/12/19 Spectra Vit 1 tab PO Q48H 08/12/19 08/12/19 ramipriL [Altace] 2.5 mg PO DAILY 08/12/19 08/12/19 Previous Rx's Medication Instructions Recorded Nitrofurantoin Monohyd/M-Cryst 100 mg PO Q12HR #6 cap 09/26/19 [Macrobid] predniSONE [Deltasone] 40 mg PO DAILY #8 tab 06/04/21 Allergies Allergy/AdvReac Type Severity Reaction Status Date / Time Penicillins Allergy Unknown Verified 06/04/21 12:32 Sulfa (Sulfonamide Allergy Unknown Verified 06/04/21 12:32 Antibiotics) Review of Systems ROS Statement: Those systems with pertinent positive or pertinent negative responses have been documented in the HPI. ROS Other: All systems not noted in ROS Statement are negative. Past Medical History Past Medical History: CVA/TIA, Dementia, Hearing Disorder / Deafness, Hyperlipidemia, Hypertension, Renal Disease, Syncope, Thyroid Disorder Additional Past Medical History / Comment(s): CVA "FEW YRS AGO"-WALKS WITH CANE- HAS BALANCE PROBLEMS-,SOB, STONES IN GALLBLADDER AND BILE DUCT. Stage 4 kidney disease. Hard of hearing bilaterally. History of Any Multi-Drug Resistant Organisms: None Reported Past Surgical History: Tonsillectomy Past Anesthesia/Blood Transfusion Reactions: No Reported Reaction Past Psychological History: No Psychological Hx Reported Smoking Status: Current every day smoker Past Alcohol Use History: None Reported Past Drug Use History: None Reported - Past Family History Brother(s) Family Medical History: Cancer Mother History Unknown: Yes Father History Unknown: Yes General Exam - General Exam Comments Initial Comments: GENERAL: Patient is well-developed and well-nourished. Patient is nontoxic and well- hydrated and is in mild distress. ENT: Neck is soft and supple. No significant lymphadenopathy is noted. Oropharynx is clear. Moist mucous membranes. Neck has full range of motion without e liciting any pain. EYES: The sclera were anicteric and conjunctiva were pink and moist. Extraocular movements were intact and pupils were equal round and reactive to light. Eyelids were unremarkable. PULMONARY: Expiratory wheezing CARDIOVASCULAR: There is a regular rate and rhythm without any murmurs gallops or rubs. ABDOMEN: Soft and nontender with normal bowel sounds. No palpable organomegaly was noted. There is no palpable pulsatile mass. SKIN: Skin is clear with no lesions or rashes and otherwise unremarkable. NEUROLOGIC: Patient is alert and oriented x3. Cranial nerves II through XII are grossly intact. Motor and sensory are also intact. Normal speech, volume and content. Symmetrical smile. MUSCULOSKELETAL: Normal extremities with adequate strength and full range of motion. No lower extremity swelling or edema. No calf tenderness. LYMPHATICS: No significant lymphadenopathy is noted PSYCHIATRIC: Normal psychiatric evaluation. Limitations: physical limitation Course Vital Signs 06/04/21 06/04/21 06/04/21 12:28 14:58 15:04 Temperature 98.2 F Pulse Rate 47 L 50 L 50 L Respiratory 20 Rate Blood Pressure 171/81 O2 Sat by Pulse 93 L Oximetry Medical Decision Making - Medical Decision Making Patient and family did not want to wait around until patient could urinate and she refused catheterization. Chest x-ray shows no acute abnormality. Patient did receive a breathing treatment and steroids in the emergency department. EKG shows sinus bradycardia at 45 bpm SC interval 128 QRSs 82 QT interval 470 QTC is 46 per patient's EKG shows no ST segment elevation or depression. I looked in previous EKGs patient was often bradycardic in the past as well. - Lab Data Result diagrams: 06/04/21 12:52 06/04/21 12:52 Lab Results 06/04/21 06/04/21 06/04/21 Range/Units 12:52 12:52 12:52 WBC 8.9 (3.8-10.6) k/uL RBC 4.68 (3.80-5.40) m/uL Hgb 15.5 (11.4-16.0) gm/dL Hct 45.9 (34.0-46.0) % MCV 98.1 (80.0-100.0) fL MCH 33.1 (25.0-35.0) pg MCHC 33.7 (31.0-37.0) g/dL RDW 13.8 (11.5-15.5) % Plt Count 292 (150-450) k/uL MPV 8.5 Neutrophils % 60 % Lymphocytes % 28 % Monocytes % 5 % Eosinophils % 4 % Basophils % 1 % Neutrophils # 5.4 (1.3-7.7) k/uL Lymphocytes # 2.5 (1.0-4.8) k/uL Monocytes # 0.4 (0-1.0) k/uL Eosinophils # 0.4 (0-0.7) k/uL Basophils # 0.1 (0-0.2) k/uL PT 10.3 (9.0-12.0) sec INR 1.0 (<1.2) APTT 21.4 L (22.0-30.0) sec Sodium 137 (137-145) mmol/L Potassium 5.0 (3.5-5.1) mmol/L Chloride 107 (98-107) mmol/L Carbon Dioxide 20 L (22-30) mmol/L Anion Gap 10 mmol/L BUN 29 H (7-17) mg/dL Creatinine 1.31 H (0.52-1.04) mg/dL Est GFR (CKD-EPI)AfAm 43 (>60 ml/min/1.73 sqM) Est GFR (CKD-EPI)NonAf 37 (>60 ml/min/1.73 sqM) Glucose 205 H (74-99) mg/dL Plasma Lactic Acid Timmy (0.7-2.0) mmol/L Calcium 9.5 (8.4-10.2) mg/dL Total Bilirubin 0.4 (0.2-1.3) mg/dL AST 20 (14-36) U/L ALT 14 (4-34) U/L Alkaline Phosphatase 108 (38-126) U/L Troponin I (0.000-0.034) ng/mL NT-Pro-B Natriuret Pep pg/mL Total Protein 6.6 (6.3-8.2) g/dL Albumin 3.8 (3.5-5.0) g/dL Amylase 68 (30-110) U/L Lipase 52 (23-300) U/L 06/04/21 06/04/21 06/04/21 Range/Units 12:52 12:52 12:52 WBC (3.8-10.6) k/uL RBC (3.80-5.40) m/uL Hgb (11.4-16.0) gm/dL Hct (34.0-46.0) % MCV (80.0-100.0) fL MCH (25.0-35.0) pg MCHC (31.0-37.0) g/dL RDW (11.5-15.5) % Plt Count (150-450) k/uL MPV Neutrophils % % Lymphocytes % % Monocytes % % Eosinophils % % Basophils % % Neutrophils # (1.3-7.7) k/uL Lymphocytes # (1.0-4.8) k/uL Monocytes # (0-1.0) k/uL Eosinophils # (0-0.7) k/uL Basophils # (0-0.2) k/uL PT (9.0-12.0) sec INR (<1.2) APTT (22.0-30.0) sec Sodium (137-145) mmol/L Potassium (3.5-5.1) mmol/L Chloride (98-107) mmol/L Carbon Dioxide (22-30) mmol/L Anion Gap mmol/L BUN (7-17) mg/dL Creatinine (0.52-1.04) mg/dL Est GFR (CKD-EPI)AfAm (>60 ml/min/1.73 sqM) Est GFR (CKD-EPI)NonAf (>60 ml/min/1.73 sqM) Glucose (74-99) mg/dL Plasma Lactic Acid Timmy 1.5 (0.7-2.0) mmol/L Calcium (8.4-10.2) mg/dL Total Bilirubin (0.2-1.3) mg/dL AST (14-36) U/L ALT (4-34) U/L Alkaline Phosphatase (38-126) U/L Troponin I <0.012 (0.000-0.034) ng/mL NT-Pro-B Natriuret Pep 440 pg/mL Total Protein (6.3-8.2) g/dL Albumin (3.5-5.0) g/dL Amylase (30-110) U/L Lipase (23-300) U/L Disposition Clinical Impression: COPD exacerbation Disposition: HOME SELF-CARE Condition: Good Prescriptions: predniSONE [Deltasone] 40 mg PO DAILY #8 tab Is patient prescribed a controlled substance at d/c from ED?: No Referrals: Ana Baxter DO [Primary Care Provider] - 1-2 days Time of Disposition: 14:34
[2021-06-04 13:40] LABS: Partial Thromboplastin Time 21.4 sec (22.0-30.0)
[2021-06-04 15:00] VITALS: PULSE 50
== END 2021-06-04 15:10 | disposition home or self-care (01) ==
LOC: EC 12:14
DX: J44.1 Chronic obstructive pulmonary disease with (acute) exacerbation (principal); E78.5 Hyperlipidemia, unspecified; F17.200 Nicotine dependence, unspecified, uncomplicated; I12.9 Hypertensive chronic kidney disease with stage 1 through stage 4 chronic kidney disease, or unspecified chronic kidney disease; E07.9 Disorder of thyroid, unspecified; N18.4 Chronic kidney disease, stage 4 (severe); Z79.82 Long term (current) use of aspirin; Z79.899 Other long term (current) drug therapy; Z86.73 Personal history of transient ischemic attack (TIA), and cerebral infarction without residual deficits; Z88.0 Allergy status to penicillin; Z88.2 Allergy status to sulfonamides; Z79.890 Hormone replacement therapy
CPT/HCPCS: 94640; 93005; 83880; 80053; 82150; 83605; 83690; 84484; 85025; 85610; 85730; 71046; 99285; 96374; J2930

== ENCOUNTER → 2021-09-12 | Outpatient (CLI) | payer MEDICARE, BC ==
[2021-09-12 23:20] LABS: Basophils # (A) 0.05 X 10*3/uL (0.00-0.10); Basophils % (A) 0.5 %; Eosinophils # (A) 0.26 X 10*3/uL (0.04-0.35); Eosinophils % (A) 2.8 %; HGB 15.2 g/dL (12.0-15.0); Lymphocytes # (A) 2.81 X 10*3/uL (0.90-5.00); MCH 33.3 pg (27.0-32.0); MCHC 32.3 g/dL (32.0-37.0); MCV 102.8 fL (80.0-97.0); Mean Platelet Volume 11.9 fL (9.5-12.2); Monocytes # (A) 0.71 X 10*3/uL (0.20-1.00); Monocytes % (A) 7.6 %; Neutrophils # (A) 5.51 X 10*3/uL (1.80-7.70); Neutrophils % (A) 58.7 %; Platelet Count 274 X 10*3/uL (140-440); RBC 4.57 X 10*6/uL (4.10-5.20); RDW 13.5 % (11.5-14.5); WBC 9.38 X 10*3/uL (4.50-10.00)
[2021-09-13 01:30] LABS: % Iron Saturation 25.05 (12.00-45.00); African American GFR (CKD) 35.9 (60.0-200.0); Albumin 3.8 g/dL (3.8-4.9); Albumin/Globulin Ratio 1.63 (1.60-3.17); Anion Gap 13.4 mmol/L (10.00-18.00); BUN/Creat Ratio 15.67 Ratio (12.00-20.00); Blood Urea Nitrogen 23.5 mg/dL (9.0-27.0); Calcium 9.3 mg/dL (8.7-10.3); Carbon Dioxide 23.4 mmol/L (20.0-27.5); Globulin 2.4 g/dL (1.6-3.3); Total Bilirubin 0.3 mg/dL (0.30-1.20); Total Protein 6.2 g/dL (6.2-8.2); Uric Acid 6.3 mg/dL (2.9-7.7)
== END | disposition home or self-care (01) ==
LOC: LABWHC1 15:10
PROVIDERS: ATTEND Physician Assistant Medical
DX: N18.30 Chronic kidney disease, stage 3 unspecified (principal); E55.9 Vitamin D deficiency, unspecified; M10.9 Gout, unspecified; N39.0 Urinary tract infection, site not specified; I10 Essential (primary) hypertension; E78.5 Hyperlipidemia, unspecified
CPT/HCPCS: 36415; 80053; 82306; 82728; 83036; 83540; 83550; 84443; 84550; 85025

== ENCOUNTER 2021-12-26 09:32 | Inpatient (IN) | payer MEDICARE, BC ==
[2021-12-26 09:55] LABS: Glucose,Whole Blood 121 mg/dL (75-99)
--- NOTE | 2021-12-26 10:01 | ED ---
General Adult HPI - General Chief complaint: Dizziness Stated complaint: Near Syncope/Low BP Time Seen by Provider: 12/26/21 09:34 Source: patient, family, EMS Mode of arrival: EMS Limitations: altered mental status - History of Present Illness Initial comments: Dictation was produced using [employer] dictation software. please excuse any grammatical, word or spelling errors. Chief Complaint: 86-year-old female presents to the emergency department after episode of back pain, shortness of breath dizziness History of Present Illness: 86-year-old female she is with her daughter. Daughter provides most of the history present illness. Daughter reports that this morning she woke up with feelings of lightheadedness. Typically every m orning she wakes except has coffee with the family however she did not feel well. She states she had some back pain. States that the pain was sharp in her mid scapular area. She started to feel diaphoretic short of breath and dizzy. She went back to bed. Daughter checked her blood pressure was found to be slightly low the measurement of 90 systolic. EMS was called. Fire got there and her blood pressures 162. Patient states that her symptoms resolved en route to the emergency department. States she feels fine. She wants to have her coffee now. Patient has any symptoms whatsoever she feels at baseline currently. The ROS documented in this emergency department record has been reviewed and confirmed by me. Those systems with pertinent positive or negative responses have been documented in the HPI. All other systems are other negative and/or noncontributory. PHYSICAL EXAM: General Impression: Alert and oriented x3, not in acute distress HEENT: Normocephalic atraumatic, extra-ocular movements intact, pupils equal and reactive to light bilaterally, mucous membranes moist. Cardiovascular: Heart regular rate and rhythm Chest: Able to complete full sentences, no retractions, no tachypnea Abdomen: abdomen soft, non-tender, non-distended, no organomegaly Musculoskeletal: Pulses present and equal in all extremities, no peripheral edema Motor: no focal deficits noted Neurological: CN II-XII grossly intact, no focal motor or sensory deficits noted Skin: Intact with no visualized rashes Psych: Normal affect and mood ED course: 86-year-old feel presents with several minutes of back pain, shortness of breath, diaphoresis and low blood pressure. She had these symptoms prior to coming to the emergency department from when she woke up to while en route. Vital signs upon arrival shows 9% on room air, so vital signs within acceptable limits. Patient's well-appearing at the bedside. Is not dyspneic. CBC is unremarkable. D-dimer is 4.48, metabolic panel is within acceptable limits. Troponin is elevated 1.090. Patient has history of elevated troponin though not this high. Patient reevaluated at bedside at 3:00 PM continues to be asymptomatic. Patient did have some back pain suspicious for acute coronary syndrome earlier today. Clinical presentation concerning for NSTEMI palpation is asymptomatic currently. CT angios the chest shows coronary artery disease with [id number] to severe irregular atherosclerotic plaque throughout to visualize aorta. 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 No definite pulmonary embolus. Does appear to be stones in the gallbladder. Case discussed with Dr. Bailey who is willing to accept patient's care. EKG interpretation: Ventricular rate 71, sinus rhythm, KS interval 152, care is 84, QTC 02/02/1941. No KS prolongation, no QTC prolongation, no ST or T-wave changes noted. Overall, this EKG is unremarkable - Related Data Home Medications Medication Instructions Recorded Confirmed Levothyroxine Sodium [Synthroid] 88 mcg PO DAILY 08/03/15 12/26/21 Pantoprazole Sodium 40 mg PO DAILY 08/03/15 12/26/21 Atorvastatin [Lipitor] 40 mg PO HS 01/13/17 12/26/21 Memantine [Namenda] 10 mg PO BID 10/10/18 12/26/21 Cholecalciferol [Vitamin D3 (25 50 mcg PO Q48H 11/08/21 12/26/21 Mcg = 1000 Iu)] Donepezil HCl [Aricept] 10 mg PO DAILY 11/08/21 12/26/21 Multivitamins, Thera [Multivitamin 1 tab PO Q48H 11/08/21 12/26/21 (formulary)] Barney-3 Fatty Acids/Fish Oil [Fish 1 cap PO Q48H 11/08/21 12/26/21 Oil 1,000 mg Softgel] Fluticasone/Umeclidin/Vilanter 1 puff INHALATION RT-DAILY 11/10/21 12/26/21 [Trelegy Ellipta 100-62.5-25] Nitroglycerin Sl Tabs [Nitrostat] 0.4 mg SL Q5M PRN 12/26/21 12/26/21 Previous Rx's Medication Instructions Recorded Aspirin 81 mg PO DAILY 11/10/21 Ipratropium Nebulized [Atrovent 0.5 mg INHALATION RT-QID PRN ml 11/10/21 Nebulized 0.2 MG/ML] Meclizine HCl 25 mg PO TID PRN #0 11/10/21 Melatonin 6 mg PO HS tablet 11/10/21 Nicotine 14Mg/24Hr Patch [Habitrol] 1 patch TRANSDERM DAILY patch 11/10/21 amLODIPine [Norvasc] 5 mg PO DAILY tab 11/10/21 lisinopriL [Zestril] 10 mg PO DAILY tab 11/10/21 Allergies Allergy/AdvReac Type Severity Reaction Status Date / Time Penicillins Allergy Unknown Verified 12/26/21 11:39 Sulfa (Sulfonamide Allergy Unknown Verified 12/26/21 11:39 Antibiotics) Review of Systems ROS Statement: Those systems with pertinent positive or pertinent negative responses have been documented in the HPI. ROS Other: All systems not noted in ROS Statement are negative. Past Medical History Past Medical History: COPD, CVA/TIA, Dementia, Hearing Disorder / Deafness, Hyperlipidemia, Hypertension, Renal Disease, Syncope, Thyroid Disorder Additional Past Medical History / Comment(s): CVA "FEW YRS AGO"-WALKS WITH CANE- HAS BALANCE PROBLEMS-,SOB, STONES IN GALLBLADDER AND BILE DUCT. Stage 4 kidney disease. Hard of hearing bilaterally. History of Any Multi-Drug Resistant Organisms: None Reported Past Surgical History: Tonsillectomy Past Anesthesia/Blood Transfusion Reactions: No Reported Reaction Past Psychological History: No Psychological Hx Reported Smoking Status: Current every day smoker Past Alcohol Use History: None Reported Past Drug Use History: None Reported - Past Family History Brother(s) Family Medical History: Cancer Mother History Unknown: Yes Father History Unknown: Yes General Exam Limitations: altered mental status Course Vital Signs 12/26/21 12/26/21 09:35 12:00 Temperature 97.8 F Pulse Rate 73 71 Respiratory 18 18 Rate Blood Pressure 140/79 166/83 O2 Sat by Pulse 90 L 96 Oximetry Medical Decision Making - Lab Data Result diagrams: 12/26/21 10:00 12/26/21 10:00 Lab Results 12/26/21 12/26/21 12/26/21 Range/Units 09:17 09:47 10:00 WBC 7.3 (3.8-10.6) k/uL RBC 4.91 (3.80-5.40) m/uL Hgb 16.1 H (11.4-16.0) gm/dL Hct 48.8 H (34.0-46.0) % MCV 99.3 (80.0-100.0) fL MCH 32.7 (25.0-35.0) pg MCHC 32.9 (31.0-37.0) g/dL RDW 13.0 (11.5-15.5) % Plt Count 204 (150-450) k/uL MPV 9.1 Neutrophils % 67 % Lymphocytes % 22 % Monocytes % 5 % Eosinophils % 4 % Basophils % 1 % Neutrophils # 4.9 (1.3-7.7) k/uL Lymphocytes # 1.6 (1.0-4.8) k/uL Monocytes # 0.4 (0-1.0) k/uL Eosinophils # 0.3 (0-0.7) k/uL Basophils # 0.1 (0-0.2) k/uL D-Dimer 4.48 H (<0.60) mg/L FEU Sodium (137-145) mmol/L Potassium (3.5-5.1) mmol/L Chloride (98-107) mmol/L Carbon Dioxide (22-30) mmol/L Anion Gap mmol/L BUN (7-17) mg/dL Creatinine (0.52-1.04) mg/dL Est GFR (CKD-EPI)AfAm (>60 ml/min/1.73 sqM) Est GFR (CKD-EPI)NonAf (>60 ml/min/1.73 sqM) Glucose (74-99) mg/dL POC Glucose (mg/dL) 121 H (75-99) mg/dL POC Glu Compensation And Benefits Analyst ID Johanny Hui Calcium (8.4-10.2) mg/dL Magnesium (1.6-2.3) mg/dL Total Bilirubin (0.2-1.3) mg/dL AST (14-36) U/L ALT (4-34) U/L Alkaline Phosphatase (38-126) U/L Troponin I (0.000-0.034) ng/mL Total Protein (6.3-8.2) g/dL Albumin (3.5-5.0) g/dL Lipase (23-300) U/L 12/26/21 12/26/21 Range/Units 10:00 10:00 WBC (3.8-10.6) k/uL RBC (3.80-5.40) m/uL Hgb (11.4-16.0) gm/dL Hct (34.0-46.0) % MCV (80.0-100.0) fL MCH (25.0-35.0) pg MCHC (31.0-37.0) g/dL RDW (11.5-15.5) % Plt Count (150-450) k/uL MPV Neutrophils % % Lymphocytes % % Monocytes % % Eosinophils % % Basophils % % Neutrophils # (1.3-7.7) k/uL Lymphocytes # (1.0-4.8) k/uL Monocytes # (0-1.0) k/uL Eosinophils # (0-0.7) k/uL Basophils # (0-0.2) k/uL D-Dimer (<0.60) mg/L FEU Sodium 139 (137-145) mmol/L Potassium 4.3 (3.5-5.1) mmol/L Chloride 108 H (98-107) mmol/L Carbon Dioxide 28 (22-30) mmol/L Anion Gap 3 mmol/L BUN 19 H (7-17) mg/dL Creatinine 1.42 H (0.52-1.04) mg/dL Est GFR (CKD-EPI)AfAm 39 (>60 ml/min/1.73 sqM) Est GFR (CKD-EPI)NonAf 33 (>60 ml/min/1.73 sqM) Glucose 135 H (74-99) mg/dL POC Glucose (mg/dL) (75-99) mg/dL POC Glu Compensation And Benefits Analyst ID Calcium 9.0 (8.4-10.2) mg/dL Magnesium 1.7 (1.6-2.3) mg/dL Total Bilirubin 1.0 (0.2-1.3) mg/dL AST 34 (14-36) U/L ALT 19 (4-34) U/L Alkaline Phosphatase 121 (38-126) U/L Troponin I 1.090 H* (0.000-0.034) ng/mL Total Protein 6.7 (6.3-8.2) g/dL Albumin 3.6 (3.5-5.0) g/dL Lipase 50 (23-300) U/L Critical Care Time Critical Care Time: Yes Total Critical Care Time: 33 Disposition Clinical Impression: ACS (acute coronary syndrome), NSTEMI (non-ST elevated myocardial infarction) Disposition: ADMITTED IP TO THIS HOSP Condition: Serious Is patient prescribed a controlled substance at d/c from ED?: No Referrals: Ana Baxter DO [Primary Care Provider] - 1-2 days
[2021-12-26 10:16] LABS: Basophils # (A) 0.1 k/uL (0-0.2); Basophils % (A) 1 %; Eosinophils # (A) 0.3 k/uL (0-0.7); Eosinophils % (A) 4 %; HCT 48.8 % (34.0-46.0); HGB 16.1 gm/dL (11.4-16.0); Lymphocytes # (A) 1.6 k/uL (1.0-4.8); Lymphocytes % (A) 22 %; MCH 32.7 pg (25.0-35.0); MCHC 32.9 g/dL (31.0-37.0); MCV 99.3 fL (80.0-100.0); Mean Platelet Volume 9.1; Monocytes # (A) 0.4 k/uL (0-1.0); Monocytes % (A) 5 %; Neutrophils # (A) 4.9 k/uL (1.3-7.7); Neutrophils % (A) 67 %; Platelet Count 204 k/uL (150-450); RBC 4.91 m/uL (3.80-5.40); WBC 7.3 k/uL (3.8-10.6)
[2021-12-26 10:18] LABS: Albumin 3.6 g/dL (3.5-5.0); Magnesium 1.7 mg/dL (1.6-2.3); Potassium 4.3 mmol/L (3.5-5.1); Total Protein 6.7 g/dL (6.3-8.2)
--- NOTE | 2021-12-26 10:19 | XR ---
EXAMINATION TYPE: XR chest 2V DATE OF EXAM: 12/26/2021 COMPARISON: Chest x-ray 11/08/2021 HISTORY: Mid scapular pain, back pain TECHNIQUE: Frontal and lateral views of the chest are obtained. FINDINGS: There is no focal air space opacity, pleural effusion, or pneumothorax seen. The cardiac silhouette size is within normal limits, stable. The osseous structures are intact, there is thorac ic spondylosis. Aorta is dense. Apical pleural thickening is again noted with associated calcificatio n. Patient is rotated. Prominent lung volume may be indicative of underlying COPD. There are coronary artery calcifications. IMPRESSION: No acute cardiopulmonary process. Coronary artery disease.
[2021-12-26] MEDS ORDERED: SODIUM CHLORIDE 0.9% 1,000 ML IV STA (12:42)
[2021-12-26] MEDS ORDERED: ASPIRIN 81 MG PO STA (14:24)
[2021-12-26] MEDS ORDERED: SODIUM CHLORIDE 0.9% 500 ML 500 ML IV STA (14:56)
[2021-12-26] MEDS ORDERED: HEPARIN SODIUM 1,000 UN/ML (10ML VL) IV ONE (14:57)
[2021-12-26] MEDS ORDERED: NITROGLYCERIN SL TABS 0.4 MG TAB SUBLINGUAL PRN (14:57)
[2021-12-26] MEDS ORDERED: HEPARIN SODIUM 1,000 UN/ML (10ML VL) IV PRN (14:57)
[2021-12-26] MEDS ORDERED: HEPARIN SOD,PORK IN 0.45% NACL 25,000 UNIT in 0.45% NACL 1 250ML.BAG IV SCH (15:00)
--- NOTE | 2021-12-26 15:10 | CT ---
EXAMINATION TYPE: CT angio chest DATE OF EXAM: 12/26/2021 COMPARISON: Radiograph 12/26/2021 HISTORY: 86-year-old female with syncope and low blood pressure, Elevated D-dimer TECHNIQUE: Contiguous axial scanning of the chest performed with IV Contrast, patient injected with 4 6 mL of Isovue 370. Coronal and sagittal MIP reconstructions performed. CT DLP: 263.3 mGycm Automated exposure control for dose reduction was used. FINDINGS: Heart upper limits of normal in size without pericardial effusion. Three-vessel coronary artery calci fications are present and are a marker for coronary artery disease. Moderate to severe atherosclerotic plaque throughout the thoracic aorta and visualized upper abdomina l aorta. In some regions, the lumen is narrowed down to 1.7 cm there are extensive plaque irregularit y is present. Aneurysm at the thoracoabdominal junction up to 3.2 cm. No thoracic lymphadenopathy by CT size criteria. Satisfactory opacification of pulmonary arterial system. There is breathing motion limiting assessmen t especially of the mid and lower lungs. No definite pulmonary embolus allowing for this limitation. Nodular pleural-parenchymal scarring along with calcifications in the upper lobes. Moderate to advanc ed centrilobular emphysema. Prominent breathing motion in the lower lungs. A few scattered calcified granulomas. No cinthya consolidation or pleural effusion. Visualized upper abdomen shows nodular mural based soft tissue density measuring 2.5 x 1.0 cm along t he bladder wall and a dependent focus at the neck of the gallbladder measuring 1 cm, probable stones. This should be confirmed with ultrasound to exclude tumefactive sludge or large gallbladder wall sarwat yp/neoplasm. Bones: Accentuated upper thoracic kyphosis. Levoconvex curvature upper thoracic spine. Moderate degen erative disc disease midthoracic spine. IMPRESSION: 1. BREATHING MOTION LIMITING THE EVALUATION. NO DEFINITE PULMONARY EMBOLUS. 2. CAD WITH 3 VESSEL CORONARY ARTERY CALCIFICATIONS. MODERATE TO SEVERE IRREGULAR ATHEROSCLEROTIC RADHA QUE THROUGHOUT THE VISUALIZED AORTA. ANEURYSM AT THE THORACOABDOMINAL JUNCTION OF 3.2 CM WHERE THE HOLLY MEN IS NARROWED DOWN TO 1.7 CM SECONDARY TO THE PLAQUE. CONSIDER REFERRAL TO PRIMARY CARE OR VASCULAR SURGERY TO ADDRESS THIS EXTENSIVE PLAQUE. 3. COPD WITH MODERATE TO ADVANCED EMPHYSEMA. EVIDENCE OF PRIOR GRANULOMATOUS DISEASE. 4. NONEMERGENT GALLBLADDER ULTRASOUND FOR POSSIBLE ADHERENT STONES MEASURING UP TO 2.5 CM VERSUS TUME FACTIVE SLUDGE. LARGE GALLBLADDER WALL POLYPS OR NEOPLASM SHOULD BE EXCLUDED.
[2021-12-26] MEDS: NICOTINE 14MG/24HR PATCH TRANSDERM SCH (16:43)
[2021-12-26 17:20] LABS: INR 1.2 (<1.2); Prothrombin Time 12.4 sec (9.0-12.0)
[2021-12-26 17:36] LABS: Partial Thromboplastin Time 120.6 sec (22.0-30.0)
[2021-12-26] MEDS ORDERED: MECLIZINE 25 MG TAB PO PRN (21:30)
[2021-12-26] MEDS: ATORVASTATIN 40 MG TAB PO SCH (21:37)
[2021-12-26] MEDS: MELATONIN 3 MG TABLET PO SCH (21:37)
[2021-12-26] MEDS ORDERED: HYDROcodone/APAP 5-325MG 1 EACH TAB PO PRN (23:32)
[2021-12-27] MEDS: MEMANTINE 10 MG TAB PO SCH ×2 (08:01→20:25)
[2021-12-27] MEDS: LEVOTHYROXINE 88 MCG TAB PO SCH (08:01)
[2021-12-27] MEDS: lisinopriL 10 MG TAB PO SCH (08:01)
[2021-12-27] MEDS: amLODIPine 5 MG TAB PO SCH (08:01)
[2021-12-27] MEDS: DONEPEZIL 10 MG TAB PO SCH (08:01)
[2021-12-27] MEDS: NICOTINE 14MG/24HR PATCH TRANSDERM SCH (08:01)
[2021-12-27] MEDS ORDERED: ASPIRIN 325 MG TAB PO SCH (09:00)
[2021-12-27 09:08] LABS: Chol/HDL Ratio 3.18 Ratio; LDL Cholesterol,Calculated 75.7 mg/dL (0.0-131.0)
[2021-12-27] MEDS: METOPROLOL TARTRATE 25 MG TAB PO SCH ×2 (10:44→20:25)
--- NOTE | 2021-12-27 13:13 | P.CRDCN ---
History of Present Illness History of present illness: This is a 86-year-old female with a past medical history significant for Alzheimer's hypertension, hyperlipidemia, dementia, GERD, and hypothyroidism, Carotid stenosis, prior CVA,. Patient follows in the office with Dr. Lawton. We have been asked to see the patient in consultation for abnormal troponins. Patient examined at the bedside. Patient was brought to the hospital secondary to patient's daughters noticed in the morning patient was short of breath and having upper bilateral back pain and also had feelings of lightheadedness. Patient was not feeling well and this is new for the patient. She had no chest pain, however due to the change in status of the patient the daugther called EMS. Patient is confused at the time of examination. She is a poor historian and unable to provide much history. Family at bedside. She has no recollection of coming to the emergency room and is unsure of why she was brought to the hospital, but does remember being short of breath and having pain. These symptoms have resolved. Patient denies any shortness of breath currently. She denies any chest pain or pressure. She currently denies dizziness or lightheadedness. Patient was found to have abnormal troponins 1.09, 1.01-->2.08 and was started on IV heparin. DIAGNOSTICS -EKG reveals sinus mechanism, nonspecific T abnormality. no acute ST ST wave abnormalities suggest acute ischemia. -Chest xray no evidence for acute pulmonary disease. -CTA- no pulmonary embolism, CAD with 3 vessel coronary artery calcifications branches of irregularity at the stress-like plaques throughout the visualized aorta. 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 Large gallbladder wall polyps or neoplasm should be excluded -Labs, sodium 139, potassium 4.3, BUN 19, serum creatinine 1.4 -Current home cardiac medications include Lisinopril 10mg, Lipitor 40 mg at night, aspirin 81 mg daily, amlodipine 5 mg daily -Patient underwent Lexiscan stress test in 2018 which was negative for ischemia. -Echocardiogram completed in March 2018 revealed ejection fraction 50-55%, mild mitral regurgitation, mild tricuspid regurgitation, and mild to moderate pulmonary hypertension REVIEW OF SYSTEMS: At the time of my exam: CONSTITUTIONAL: Denies fever or chills. HEENT: Denies blurred vision, vision changes, or eye pain. Denies hemoptysis CARDIOVASCULAR: Denies chest pain. Denies orthopnea. Denies PND. Denies palpitations RESPIRATORY: Denies shortness of breath. GASTROINTESTINAL: Denies abdominal pain. Denies nausea or vomiting. HEMATOLOGIC: Denies bleeding disorders. GENITOURINARY: Denies any blood in urine. SKIN: Denies pruitis. Denies rash. PHYSICAL EXAM: VITAL SIGNS: Reviewed. GENERAL: In acute distress. HEENT: Head is normocephalic. Pupils are equal, round. Sclerae anicteric. Mucous membranes of the mouth are moist. Neck supple. No JVD LUNGS: Respirations even and unlabored. Lungs essentially clear to auscultation bilaterally. HEART: Regular rate and rhythm. S1 and S2 heard. ABDOMEN: Soft. Nondistended. Nontender. EXTREMITIES: Normal range of motion. No clubbing or cyanosis. Peripheral pulses intact. No lower extremity edema NEUROLOGIC: Awake and alert. Oriented x 2, patient knows she is in the hospital and knows that it is daytime ASSESSMENT: NSTEMI Acute on chronic kidney disease Hypertension Hyperlipidemia Alzheimers Dementia Hypothyroidism Carotid stenosis Prior CVA PLAN: From a cardiology perspective, we recommend medical therapy. This was discussed with daughter and patient at bedside and they're in agreement Obtain 2D echo to assess cardiac structure and function Patient unable to tolerate IV Heparin, per nursing has removed 3+ PIVs, consider Lovenox, however not with renal function Consider dual antiplatelet therapy but given patient's age will hold at this time Start metoprolol tartrate 25 mg twice a day Continue home medications aspirin 81 mg daily, atorvastatin 40 mg nightly, amlodipine 5 mg daily, lisinopril 10 mg daily Continue telemetry monitoring Further recommendations pending patient's course Nurse practitioner note has been reviewed by physician. Signing provider agrees with the documented findings, assessment, and plan of care. Past Medical History Past Medical History: COPD, CVA/TIA, Dementia, Hearing Disorder / Deafness, Hyperlipidemia, Hypertension, Renal Disease, Syncope, Thyroid Disorder Additional Past Medical History / Comment(s): CVA "FEW YRS AGO"-WALKS WITH CANE- HAS BALANCE PROBLEMS-,SOB, STONES IN GALLBLADDER AND BILE DUCT. Stage 4 kidney disease. Hard of hearing bilaterally. History of Any Multi-Drug Resistant Organisms: None Reported Past Surgical History: Tonsillectomy Past Anesthesia/Blood Transfusion Reactions: No Reported Reaction Past Psychological History: No Psychological Hx Reported Smoking Status: Current every day smoker Past Alcohol Use History: None Reported Past Drug Use History: None Reported - Past Family History Brother(s) Family Medical History: Cancer Mother History Unknown: Yes Father History Unknown: Yes Medications and Allergies Home Medications Medication Instructions Recorded Confirmed Type Levothyroxine Sodium [Synthroid] 88 mcg PO DAILY 08/03/15 12/26/21 History Pantoprazole Sodium 40 mg PO DAILY 08/03/15 12/26/21 History Atorvastatin [Lipitor] 40 mg PO HS 01/13/17 12/26/21 History Memantine [Namenda] 10 mg PO BID 10/10/18 12/26/21 History Cholecalciferol [Vitamin D3 (25 50 mcg PO Q48H 11/08/21 12/26/21 History Mcg = 1000 Iu)] Donepezil HCl [Aricept] 10 mg PO DAILY 11/08/21 12/26/21 History Multivitamins, Thera [Multivitamin 1 tab PO Q48H 11/08/21 12/26/21 History (formulary)] [place]-3 Fatty Acids/Fish Oil [Fish 1 cap PO Q48H 11/08/21 12/26/21 History Oil 1,000 mg Softgel] Aspirin 81 mg PO DAILY 11/10/21 12/26/21 Rx Fluticasone/Umeclidin/Vilanter 1 puff INHALATION RT-DAILY 11/10/21 12/26/21 History [Trelegy Ellipta 100-62.5-25] Ipratropium Nebulized [Atrovent 0.5 mg INHALATION RT-QID PRN ml 11/10/21 12/26/21 Rx Nebulized 0.2 MG/ML] Meclizine HCl 25 mg PO TID PRN #0 11/10/21 12/26/21 Rx Melatonin 6 mg PO HS tablet 11/10/21 12/26/21 Rx Nicotine 14Mg/24Hr Patch [Habitrol] 1 patch TRANSDERM DAILY patch 11/10/21 12/26/21 Rx amLODIPine [Norvasc] 5 mg PO DAILY tab 11/10/21 12/26/21 Rx lisinopriL [Zestril] 10 mg PO DAILY tab 11/10/21 12/26/21 Rx Nitroglycerin Sl Tabs [Nitrostat] 0.4 mg SL Q5M PRN 12/26/21 12/26/21 History Allergies Allergy/AdvReac Type Severity Reaction Status Date / Time Penicillins Allergy Unknown Verified 12/26/21 11:39 Sulfa (Sulfonamide Allergy Unknown Verified 12/26/21 11:39 Antibiotics) Physical Exam Vitals: Vital Signs Temp Pulse Resp BP Pulse Ox 12/27/21 04:52 69 19 156/89 94 L 12/26/21 21:40 71 18 162/80 95 12/26/21 18:00 69 18 145/73 95 12/26/21 16:00 78 18 166/89 95 12/26/21 12:00 71 18 166/83 96 12/26/21 09:35 97.8 F 73 18 140/79 90 L Intake and Output 12/26/21 12/27/21 12/27/21 22:59 06:59 14:59 Intake Total 17.11 39.724 Balance 17.11 39.724 Intake: Intake, IV Titration 17.11 39.724 Amount Heparin Sod,Pork in 0.45% 17.11 39.724 NaCl 25,000 unit In 0.45 % NaCl 1 250ml.bag @ 12 UNITS/KG/HR 8.927 mls/hr IV .Q24H [facility] Rx#: [id number] Results 12/26/21 10:00 12/26/21 10:00 Cardiac Enzymes 12/26/21 12/26/21 12/26/21 Range/Units 10:00 10:00 15:59 AST 34 (14-36) U/L Troponin I 1.090 H* 1.010 H* (0.000-0.034) ng/mL 12/26/21 Range/Units 20:05 AST (14-36) U/L Troponin I 2.080 H* (0.000-0.034) ng/mL Coagulation 12/26/21 12/26/21 Range/Units 16:16 23:15 PT 12.4 H (9.0-12.0) sec APTT 120.6 H* 40.6 H (22.0-30.0) sec CBC 12/26/21 Range/Units 10:00 WBC 7.3 (3.8-10.6) k/uL RBC 4.91 (3.80-5.40) m/uL Hgb 16.1 H (11.4-16.0) gm/dL Hct 48.8 H (34.0-46.0) % Plt Count 204 (150-450) k/uL Comprehensive Metabolic Panel 12/26/21 Range/Units 10:00 Sodium 139 (137-145) mmol/L Potassium 4.3 (3.5-5.1) mmol/L Chloride 108 H (98-107) mmol/L Carbon Dioxide 28 (22-30) mmol/L BUN 19 H (7-17) mg/dL Creatinine 1.42 H (0.52-1.04) mg/dL Glucose 135 H (74-99) mg/dL Calcium 9.0 (8.4-10.2) mg/dL AST 34 (14-36) U/L ALT 19 (4-34) U/L Alkaline Phosphatase 121 (38-126) U/L Total Protein 6.7 (6.3-8.2) g/dL Albumin 3.6 (3.5-5.0) g/dL Current Medications Generic Name Dose Route Start Last Admin Trade Name Freq PRN Reason Stop Dose Admin Hydrocodone Bitart/Acetaminophen 1 each 12/26/21 23:32 Hydrocodone/Apap 5-325mg 1 Each Tab PO Q6HR PRN Pain Amlodipine Besylate 5 mg 12/27/21 09:00 12/27/21 08:01 Amlodipine 5 Mg Tab PO 5 mg DAILY KATYA Administration Aspirin 325 mg 12/27/21 09:00 12/27/21 08:01 Aspirin 325 Mg Tab PO 325 mg DAILY KATYA Administration Atorvastatin Calcium 40 mg 12/26/21 21:30 12/26/21 21:37 Atorvastatin 40 Mg Tab PO 40 mg HS KATYA Administration Donepezil HCl 10 mg 12/27/21 09:00 12/27/21 08:01 Donepezil 10 Mg Tab PO 10 mg DAILY KATYA Administration Heparin Sodium (Porcine) 0 unit 12/26/21 14:57 Heparin Sodium 1,000 Un/Ml (10ml Vl) IV PER PROTOCOL PRN Low PTT Protocol Heparin Sodium/Sodium Chloride 250 mls @ 8.927 mls/hr 12/26/21 15:00 12/27/21 01:19 25,000 unit/ Sodium Chloride IV 11 units/kg/hr .Q24H KATYA 8.183 mls/hr Titration Protocol 12 UNITS/KG/HR Levothyroxine Sodium 88 mcg 12/27/21 06:30 12/27/21 08:01 Levothyroxine 88 Mcg Tab PO 88 mcg DAILY@0630 KATYA Administration Lisinopril 10 mg 12/27/21 09:00 12/27/21 08:01 Lisinopril 10 Mg Tab PO 10 mg DAILY KATYA Administration Meclizine HCl 25 mg 12/26/21 21:30 12/27/21 08:01 Meclizine 25 Mg Tab PO 25 mg TID PRN Administration Vertigo Melatonin 6 mg 12/26/21 21:30 12/26/21 21:37 Melatonin 3 Mg Tablet PO 6 mg HS KATYA Administration Memantine 10 mg 12/27/21 09:00 12/27/21 08:01 Memantine 10 Mg Tab PO 10 mg BID KATYA Administration Nicotine 1 patch 12/26/21 16:30 12/27/21 08:01 Nicotine 14mg/24hr Patch TRANSDERM 1 patch DAILY KATYA Administration Nitroglycerin 0.4 mg 12/26/21 14:57 12/26/21 15:55 Nitroglycerin Sl Tabs 0.4 Mg Tab SUBLINGUAL 0.4 mg Q5M PRN Administration Chest Pain Intake and Output 12/26/21 12/27/21 12/27/21 22:59 06:59 14:59 Intake Total 17.11 39.724 Balance 17.11 39.724 Intake: Intake, IV Titration 17.11 39.724 Amount Heparin Sod,Pork in 0.45% 17.11 39.724 NaCl 25,000 unit In 0.45 % NaCl 1 250ml.bag @ 12 UNITS/KG/HR 8.927 mls/hr IV .Q24H KATYA Rx#: [id number] 12/26/21 10:00 12/26/21 10:00
--- NOTE | 2021-12-27 15:53 | US ---
EXAMINATION TYPE: US gallbladder DATE OF EXAM: 12/27/2021 COMPARISON: CT CLINICAL HISTORY: r/o gallstones, polyps, ?neoplasm. Abnormal CT EXAM MEASUREMENTS: Liver Length: 12.0 cm Gallbladder Wall: 0.3 cm CBD: 0.7 cm Right Kidney: 9.2 x 4.5 x 4.0 cm Pancreas: 3mm panc duct visualized, tail obscured by overlying bowel gas Liver: wnl Gallbladder: Distended with gallstones and sludge Evidence for sonographic Schwab's sign: No CBD: wnl Right Kidney: Upper and lower poles gassed out, otherwise appeared wnl IMPRESSION: 1. The gallbladder hydrops with gallstones and sludge but no wall thickening. CBD dilated correlate for biliary obstruction and distal CBD Stone.
[2021-12-27] MEDS: ATORVASTATIN 40 MG TAB PO SCH (20:25)
[2021-12-27] MEDS: MELATONIN 3 MG TABLET PO SCH (20:26)
--- NOTE | 2021-12-27 23:40 | P.HPIM ---
History of Present Illness H&P Date: 12/27/21 Chief Complaint: back pain Mariella Brannon is an 86-year-old female with PMH significant CVA, HTN, HLD, Alzheimer dementia who presented to the ED complaining of upper back pain, shortness of breath and dizziness. She brought this up to her daughter who called EMS. Pt has no recollection of coming to the emergency room and is unsure of why she was brought to the hospital, but does remember being short of breath and having pain. These symptoms have resolved. Patient denies any shortness of breath currently. She denies any chest pain or pressure. She currently denies dizziness or lightheadedness. Patient with elevated trop peaking at 2.08, Cr 1.4, EKG and CTA no acute process. Pt started on IV heparin. Review of Systems ROS unobtainable: due to mental status Past Medical History Past Medical History: COPD, CVA/TIA, Dementia, Hearing Disorder / Deafness, Hyperlipidemia, Hypertension, Renal Disease, Syncope, Thyroid Disorder Additional Past Medical History / Comment(s): CVA "FEW YRS AGO"-WALKS WITH CANE- HAS BALANCE PROBLEMS-,SOB, STONES IN GALLBLADDER AND BILE DUCT. Stage 4 kidney disease. Hard of hearing bilaterally. History of Any Multi-Drug Resistant Organisms: None Reported Past Surgical History: Tonsillectomy Additional Past Surgical History / Comment(s): ERCP, multiple eye surgeries d/t graves, one cataract removed, colonoscopy. Past Anesthesia/Blood Transfusion Reactions: No Reported Reaction Past Psychological History: No Psychological Hx Reported Smoking Status: Current every day smoker Past Alcohol Use History: None Reported Past Drug Use History: None Reported - Past Family History Brother(s) Family Medical History: Cancer Mother History Unknown: Yes Family Medical History: Myocardial Infarction ([place]) Additional Family Medical History / Comment(s): Mother had MIs. She lived to be 97yrs old. Father History Unknown: Yes Additional Family Medical History / Comment(s): Father when pt was 2 yrs old from surgical complication. Medications and Allergies Home Medications Medication Instructions Recorded Confirmed Type Levothyroxine Sodium [Synthroid] 88 mcg PO DAILY 08/03/15 12/26/21 History Pantoprazole Sodium 40 mg PO DAILY 08/03/15 12/26/21 History Atorvastatin [Lipitor] 40 mg PO HS 01/13/17 12/26/21 History Memantine [Namenda] 10 mg PO BID 10/10/18 12/26/21 History Cholecalciferol [Vitamin D3 (25 50 mcg PO Q48H 11/08/21 12/26/21 History Mcg = 1000 Iu)] Donepezil HCl [Aricept] 10 mg PO DAILY 11/08/21 12/26/21 History Multivitamins, Thera [Multivitamin 1 tab PO Q48H 11/08/21 12/26/21 History (formulary)] [place]-3 Fatty Acids/Fish Oil [Fish 1 cap PO Q48H 11/08/21 12/26/21 History Oil 1,000 mg Softgel] Aspirin 81 mg PO DAILY 11/10/21 12/26/21 Rx Fluticasone/Umeclidin/Vilanter 1 puff INHALATION RT-DAILY 11/10/21 12/26/21 History [Trelegy Ellipta 100-62.5-25] Ipratropium Nebulized [Atrovent 0.5 mg INHALATION RT-QID PRN ml 11/10/21 0 12/26/21 Rx Nebulized 0.2 MG/ML] Meclizine HCl 25 mg PO TID PRN #0 11/10/21 12/26/21 Rx Melatonin 6 mg PO HS tablet 11/10/21 12/26/21 Rx Nicotine 14Mg/24Hr Patch [Habitrol] 1 patch TRANSDERM DAILY patch 11/10/21 12/26/21 Rx amLODIPine [Norvasc] 5 mg PO DAILY tab 11/10/21 12/26/21 Rx lisinopriL [Zestril] 10 mg PO DAILY tab 11/10/21 12/26/21 Rx Nitroglycerin Sl Tabs [Nitrostat] 0.4 mg SL Q5M PRN 12/26/21 12/26/21 History Allergies Allergy/AdvReac Type Severity Reaction Status Date / Time Penicillins Allergy Unknown Verified 12/26/21 11:39 Sulfa (Sulfonamide Allergy Unknown Verified 12/26/21 11:39 Antibiotics) Physical Exam Vitals: Vital Signs Temp Pulse Pulse Resp BP BP Pulse Ox 12/27/21 20:00 99.3 F 64 16 142/77 96 12/27/21 15:44 98.1 F 62 17 117/65 98 12/27/21 12:50 98.1 F 61 17 138/82 94 L 12/27/21 12:00 97.8 F 67 16 136/66 96 12/27/21 09:12 94 L 12/27/21 08:00 97.9 F 84 14 160/88 92 L 12/27/21 04:52 69 19 156/89 94 L Intake and Output 12/27/21 12/27/21 12/28/21 14:59 22:59 06:59 Other: Voiding Method Toilet # Voids 1 # Bowel Movements 2 Weight 74.389 kg General: well nourished, well developed, NAD. Vitals reviewed Eyes: PERRL, EOMI, conjunctiva normal HENT: normocephalic, mucus membranes moist Neck: supple, no JVD Lungs: normal respiratory effort, no wheezes or rales CV: Regular rate and rhythm, no murmur. Peripheral pulses 2+ Abdomen: soft, nondistended, no organomegaly Lymph: no cervical or axillary LAD Skin: warm and dry. Neuro: A&Ox2, normal mood and affect Results CBC & Chem 7: 12/26/21 10:00 12/26/21 10:00 Labs: Abnormal Lab Results - Last 24 Hours (Table) 12/26/21 12/27/21 Range/Units 23:15 04:33 APTT 40.6 H (22.0-30.0) sec Triglycerides 187.00 H (0.00-149.00) mg/dL Thrombosis Risk Factor Assmnt - Choose All That Apply Any of the Below Risk Factors Present?: Yes Each Factor Represents 1 point: Abnormal pulmonary function (COPD), Acute CA Other Risk Factors: Yes Each Risk Factor Represents 3 Points: Age 75 years or older Other congenital or acquired thrombophilia - If yes, enter type in comment: No Thrombosis Risk Factor Assessment Total Risk Factor Score: 5 Thrombosis Risk Factor Assessment Level: High Risk Assessment and Plan Plan: 1. NSTEMI. IV heparin. Cardiology consulted. Continue ASA. Continue with home cardiac medications 2. HTN 3. HLD 4. Demenia
[2021-12-28] MEDS: LEVOTHYROXINE 88 MCG TAB PO SCH (06:23)
[2021-12-28 08:07] LABS: Basophils % (A) 0 %; Eosinophils # (A) 0.1 k/uL (0-0.7); Eosinophils % (A) 1 %; HCT 46.9 % (34.0-46.0); HGB 15.7 gm/dL (11.4-16.0); Lymphocytes # (A) 1.8 k/uL (1.0-4.8); Lymphocytes % (A) 13 %; MCH 33.3 pg (25.0-35.0); MCHC 33.5 g/dL (31.0-37.0); MCV 99.5 fL (80.0-100.0); Mean Platelet Volume 9.1; Monocytes # (A) 0.8 k/uL (0-1.0); Monocytes % (A) 6 %; Neutrophils # (A) 10.4 k/uL (1.3-7.7); Neutrophils % (A) 78 %; Platelet Count 210 k/uL (150-450); RBC 4.71 m/uL (3.80-5.40); WBC 13.3 k/uL (3.8-10.6)
[2021-12-28 08:26] LABS: Calcium 8.9 mg/dL (8.4-10.2); Potassium 4.1 mmol/L (3.5-5.1)
[2021-12-28] MEDS ORDERED: ASPIRIN 81 MG PO SCH (09:00)
[2021-12-28] MEDS: NICOTINE 14MG/24HR PATCH TRANSDERM SCH (09:56)
[2021-12-28] MEDS: amLODIPine 5 MG TAB PO SCH (09:57)
[2021-12-28] MEDS: DONEPEZIL 10 MG TAB PO SCH (09:58)
[2021-12-28] MEDS: MEMANTINE 10 MG TAB PO SCH (09:58)
[2021-12-28] MEDS: lisinopriL 10 MG TAB PO SCH (09:58)
[2021-12-28] MEDS: METOPROLOL TARTRATE 25 MG TAB PO SCH (09:59)
--- NOTE | 2021-12-28 11:13 | ECHOF ---
Referral Reason: MEASUREMENTS -------- HEIGHT: 167.6 cm WEIGHT: 74.4 kg BP: IVSd: 1.1 cm (0.6 - 1.1) LVIDd: 3.8 cm (3.9 - 5.3) LVPWd: 1.1 cm (0.6 - 1.1) EDV(Teich): 61 ml IVSs: 1.7 cm LVIDs: 2.8 cm LVPWs: 1.2 cm %IVS Thck: 57 % ESV(Teich): 30 ml EF(Teich): 51 % %FS: 25 % SV(Teich): 31 ml Ao Diam: 3.2 cm (2.0 - 3.7) LA Diam: 2.7 cm (2.7 - 3.8) AV Cusp: 1.4 cm (1.5 - 2.6) EPSS: 2.8 cm MV E Clemente: 0.75 m/s MV DecT: 220 ms MV Dec Worth: 3.4 m/s MV A Clemente: 0.95 m/s MV E/A Ratio: 0.79 MV PHT: 64 ms MR Vmax: 3.48 m/s MR maxP.42 mmHg AV Vmax: 1.42 m/s AV maxP.07 mmHg AR Vmax: 2.43 m/s AR maxP.61 mmHg AR PHT: 686 ms AR Dec Time: 2365 ms AR Dec Worth: 1.0 m/s TR Vmax: 2.81 m/s TR maxP.48 mmHg RAP: 5.00 mmHg RVSP: 36.48 mmHg MV EF SLOPE: 95.56 mm/s (70 - 150) MV EXCURSION: 15.62 mm (> 18.000) FINDINGS -------- This was a technically difficult study with suboptimal views. The left ventricular size is normal. Left ventricular wall thickness is normal. Overall left vent ricular systolic function is mildly impaired with, an EF between 45 - 50 %. Basal lateral LV wall m otion is hypokinetic. Mid lateral LV wall motion is hypokinetic. The right ventricle is normal in size. The left atrial size is normal. The right atrial size is normal. Lumason used The aortic valve is trileaflet and appears structurally normal. Trace amount of aortic regurgitatio n. The mitral valve is normal. Mild mitral regurgitation is present. The tricuspid valve appears structurally normal. Mild tricuspid regurgitation present. There is m ild pulmonary hypertension. The right ventricular systolic pressure, as measured by Doppler, is 36. 48mmHg. There is no pulmonic regurgitation present. The aortic root size is normal. IVC Not well visulized. There is no pericardial effusion. CONCLUSIONS -------- 1. The left ventricular size is normal. 2. Left ventricular wall thickness is normal. 3. Overall left ventricular systolic function is mildly impaired with, an EF between 45 - 50 %. 4. Basal lateral LV wall motion is hypokinetic. 5. Mid lateral LV wall motion is hypokinetic. 6. Trace amount of aortic regurgitation. 7. Mild mitral regurgitation is present. 8. Mild tricuspid regurgitation present. 9. There is mild pulmonary hypertension. 10. The right ventricular systolic pressure, as measured by Doppler, is 36.48mmHg. 11. There is no pericardial effusion. DIE CUTTER: Kirsten Oliva RDCS
[2021-12-28 11:24] VITALS: BP 110/60; PULSE 53; RESP 19; TEMP 97.3
[2021-12-28 11:52] LABS: Glucose,Whole Blood 120 mg/dL (75-99)
--- NOTE | 2021-12-28 12:50 | P.PN ---
Subjective This is a 86-year-old female with a past medical history significant for Alzheimer's hypertension, hyperlipidemia, dementia, GERD, and hypothyroidism, Carotid stenosis, prior CVA,. Patient follows in the office with Dr. Lawton. We have been asked to see the patient in consultation for abnormal troponins. Patient examined at the bedside. Patient was brought to the hospital secondary to patient's daughters noticed in the morning patient was short of breath and having upper bilateral back pain and also had feelings of lightheadedness. Patient was not feeling well and this is new for the patient. She had no chest pain, however due to the change in status of the patient the daugther called EMS. Patient is confused at the time of examination. She is a poor historian and unable to provide much history. Family at bedside. She has no recollection of coming to the emergency room and is unsure of why she was brought to the hospital, but does remember being short of breath and having pain. These symptoms have resolved. Patient denies any shortness of breath currently. She denies any chest pain or pressure. She currently denies dizziness or lightheadedness. Patient was found to have abnormal troponins 1.09, 1.01-->2.08 and was started on IV heparin. DIAGNOSTICS -EKG reveals sinus mechanism, nonspecific T abnormality. no acute ST ST wave abnormalities suggest acute ischemia. -Chest xray no evidence for acute pulmonary disease. -CTA- no pulmonary embolism, CAD with 3 vessel coronary artery calcifications branches of irregularity at the stress-like plaques throughout the visualized aorta. 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 Large gallbladder wall polyps or neoplasm should be excluded 12/28/2021 Patient seen at bedside, no acute distress. She denies any chest pain or shortness of breath. Daughter at Bedside. No acute events overnight. Telemetry reviewed patient in sinus mechanism with heart rate in the 50s Echocardiogram: EF 4550 percent, basal lateral wall, mid lateral wall hypokinetic, mild mitral regurgitation, mild tricuspid regurgitation She is currently maintained on amlodipine 5 mg daily, aspirin 81 mg daily, atorvastatin 40 mg daily, metoprolol titrate 25 mg twice a day, lisinopril 10 mg daily PHYSICAL EXAM: VITAL SIGNS: Reviewed. GENERAL: In acute distress. HEENT: . Neck supple. No JVD LUNGS: Respirations even and unlabored. Lungs essentially clear to auscultation bilaterally. HEART: Regular rate and rhythm. S1 and S2 heard. ABDOMEN: Soft. Nondistended. Nontender. EXTREMITIES: Normal range of motion. No clubbing or cyanosis. Peripheral pulses intact. No lower extremity edema NEUROLOGIC: Awake and alert. Oriented x 2, patient knows she is in the hospital and knows that it is daytime ASSESSMENT: NSTEMI Acute on chronic kidney disease Hypertension Hyperlipidemia Alzheimers Dementia Hypothyroidism Carotid stenosis Prior CVA PLAN: From a cardiology perspective, we recommend medical therapy. This was discussed with daughter and patient at bedside and they're in agreement Consider dual antiplatelet therapy but given patient's age will hold at this time Daughter concerned of beta vihn due to patient have history of beta vinh intolerance due to mild sick sinus syndrome in the past, patient with HR 50s We will hold this medication for now and re-evaluate in the office. Continue home medications aspirin 81 mg daily, atorvastatin 40 mg nightly, amlodipine 5 mg daily, lisinopril 10 mg daily From cardiology perspective, patient stable to be discharged home. Follow up with Dr. Lawton in one week Nurse practitioner note has been reviewed by physician. Signing provider agrees with the documented findings, assessment, and plan of care. Objective - Vital Signs Vital signs: Vital Signs Temp 97.3 F L 12/28/21 11:23 Pulse 53 L 12/28/21 11:23 Resp 19 12/28/21 11:23 BP 110/60 12/28/21 11:23 Pulse Ox 95 12/28/21 11:23 Intake & Output 12/27/21 12/28/21 12/28/21 18:59 06:59 18:59 Weight 74.389 kg Other: Voiding Method Toilet # Voids 1 1 # Bowel Movements 2 - Labs CBC & Chem 7: 12/28/21 07:26 12/28/21 07:26 Labs: Abnormal Lab Results - Last 24 Hours (Table) 12/28/21 12/28/21 12/28/21 Range/Units 07:26 07:26 11:51 WBC 13.3 H (3.8-10.6) k/uL Hct 46.9 H (34.0-46.0) % Neutrophils # 10.4 H (1.3-7.7) k/uL Sodium 136 L (137-145) mmol/L BUN 19 H (7-17) mg/dL Creatinine 1.17 H (0.52-1.04) mg/dL Glucose 107 H (74-99) mg/dL POC Glucose (mg/dL) 120 H (75-99) mg/dL
== END 2021-12-28 15:58 | disposition home health service (06) | DRG 281 ==
LOC: EC 09:32 → 3SCARD 14:57
PROVIDERS: ADMIT Family Medicine; ATTEND Family Medicine
DX: I21.4 Non-ST elevation (NSTEMI) myocardial infarction (principal); N18.4 Chronic kidney disease, stage 4 (severe); N17.9 Acute kidney failure, unspecified; I27.20 Pulmonary hypertension, unspecified; I49.5 Sick sinus syndrome; G30.9 Alzheimer's disease, unspecified; F02.80 Dementia in other diseases classified elsewhere, unspecified severity, without behavioral disturbance, psychotic disturbance, mood disturbance, and anxiety; I70.0 Atherosclerosis of aorta; J43.9 Emphysema, unspecified; I12.9 Hypertensive chronic kidney disease with stage 1 through stage 4 chronic kidney disease, or unspecified chronic kidney disease; I65.29 Occlusion and stenosis of unspecified carotid artery; I08.1 Rheumatic disorders of both mitral and tricuspid valves; E03.9 Hypothyroidism, unspecified; E78.5 Hyperlipidemia, unspecified; I25.10 Atherosclerotic heart disease of native coronary artery without angina pectoris; K80.20 Calculus of gallbladder without cholecystitis without obstruction; H26.9 Unspecified cataract; K21.9 Gastro-esophageal reflux disease without esophagitis; R77.8 Other specified abnormalities of plasma proteins; M54.6 Pain in thoracic spine; H91.93 Unspecified hearing loss, bilateral; F17.200 Nicotine dependence, unspecified, uncomplicated; Z71.6 Tobacco abuse counseling; Z79.82 Long term (current) use of aspirin; Z79.51 Long term (current) use of inhaled steroids; Z79.890 Hormone replacement therapy; Z79.899 Other long term (current) drug therapy; Z98.49 Cataract extraction status, unspecified eye; Z86.73 Personal history of transient ischemic attack (TIA), and cerebral infarction without residual deficits; Z90.89 Acquired absence of other organs; Z98.890 Other specified postprocedural states; Z88.0 Allergy status to penicillin; Z88.2 Allergy status to sulfonamides; Z82.49 Family history of ischemic heart disease and other diseases of the circulatory system; Z80.9 Family history of malignant neoplasm, unspecified; Z84.89 Family history of other specified conditions
CPT/HCPCS: 36415; 71046; 71275; 76705; 80048; 80053; 80061; 83690; 83735; 84484; 85025; 85379; 85610; 85730; 93005; 93306; 96361; 96365; 96366; 99291

== ENCOUNTER → 2022-03-22 | Outpatient (CLI) | payer MEDICARE, BC ==
[2022-03-22 09:00] LABS: Appearance,Urine Cloudy (Clear); Bacteria,Urine Occasional /hpf; Bilirubin,Urine Negative (Negative); Blood,Urine Negative (Negative); Calcium Oxalate Crystals,Urine Few /hpf; Color,Urine Yellow; Glucose,Urine (UA) Negative (Negative); Ketones,Urine Negative (Negative); Leukocyte Esterase,Urine Large (Negative); Mucus,Urine Rare /hpf; Nitrite,Urine Negative (Negative); Protein,Urine Trace (Negative); RBC,Urine 3 /hpf (0-5); Specific Gravity,Urine 1.018 (1.001-1.035); Squamous Epithelial Cell,Urine 12 /hpf (0-4); WBC,Urine 69 /hpf (0-5)
[2022-03-22 14:30] LABS: Basophils # (A) 0.07 X 10*3/uL (0.00-0.10); Basophils % (A) 0.8 %; Eosinophils # (A) 0.44 X 10*3/uL (0.04-0.35); Eosinophils % (A) 5.3 %; HGB 13.8 g/dL (12.0-15.0); Immature Grans, Automated 0.4 %; Lymphocytes # (A) 1.82 X 10*3/uL (0.90-5.00); Lymphocytes % (A) 21.8 %; MCH 31.4 pg (27.0-32.0); MCHC 31.4 g/dL (32.0-37.0); MCV 100.2 fL (80.0-97.0); Mean Platelet Volume 11.9 fL (9.5-12.2); Monocytes % (A) 7.2 %; NRBC Per 100 WBC 0 /100 WBCS (0.0-0.0); Neutrophils # (A) 5.38 X 10*3/uL (1.80-7.70); Neutrophils % (A) 64.5 %; Platelet Count 256 X 10*3/uL (140-440); RBC 4.39 X 10*6/uL (4.10-5.20); RDW 14.5 % (11.5-14.5); WBC 8.34 X 10*3/uL (4.50-10.00)
[2022-03-22 15:38] LABS: % Iron Saturation 30.22 (12.00-45.00); African American GFR (CKD) 40.1 (60.0-200.0); BUN/Creat Ratio 12.55 Ratio (12.00-20.00); Blood Urea Nitrogen 17.2 mg/dL (9.0-27.0); Calcium 9.3 mg/dL (8.7-10.3); Carbon Dioxide 25.9 mmol/L (20.0-27.5); Non-African American GFR(CKD) 34.6 (60.0-200.0); Potassium 4.2 mmol/L (3.5-5.5); Uric Acid 5.4 mg/dL (2.9-7.7)
== END | disposition home or self-care (01) ==
LOC: LABWHC1 07:01
PROVIDERS: ATTEND Nurse Practitioner Family
DX: D63.1 Anemia in chronic kidney disease (principal); N18.30 Chronic kidney disease, stage 3 unspecified; E55.9 Vitamin D deficiency, unspecified; M10.9 Gout, unspecified; N39.0 Urinary tract infection, site not specified; R80.9 Proteinuria, unspecified
CPT/HCPCS: 36415; 80048; 81001; 82306; 82728; 83540; 83550; 84550; 85025; 87086

== ENCOUNTER → 2022-12-27 | Outpatient (CLI) | payer MEDICARE, BC ==
[2022-12-27 16:45] LABS: HDL Cholesterol 33.8 mg/dL (40.00-60.00)
[2022-12-27 17:06] LABS: Chol/HDL Ratio 6.3 Ratio; LDL Cholesterol,Direct Reflex 72.1 mg/dL (0.00-129.00)
== END | disposition home or self-care (01) ==
LOC: LABWHC1 07:33
PROVIDERS: ATTEND Internal Medicine Cardiovascular Disease
DX: E78.2 Mixed hyperlipidemia (principal)
CPT/HCPCS: 36415; 80061; 83721; 84450; 84460

== ENCOUNTER → 2023-01-24 | Outpatient (CLI) | payer MEDICARE, BC ==
[2023-01-24 16:04] LABS: T4, Free (Free Thyroxine) 1.28 ng/dL (0.800-1.800)
== END | disposition home or self-care (01) ==
LOC: LABWHC1 07:05
PROVIDERS: ATTEND Internal Medicine Cardiovascular Disease
DX: E78.2 Mixed hyperlipidemia (principal)
CPT/HCPCS: 36415; 82947; 84439; 84443

== ENCOUNTER → 2024-02-29 | Outpatient (CLI) | payer MEDICARE, BC ==
--- NOTE | 2024-03-01 03:21 | US ---
EXAMINATION TYPE: US kidneys/renal and bladder DATE OF EXAM: 02/29/2024 COMPARISON: US gallbladder 12/27/2021, renal ultrasound 12/17/2016 CLINICAL INDICATION: Female, 88 years old with history of N18.32 CHRONIC KIDNEY DISEASE, STAGE 3B; CK D EXAM MEASUREMENTS: Right Kidney: 10.1 x 4.0 x 4.3 cm Left Kidney: 10.0 x 4.7 x 4.5 cm Post Void Residual Volume: 110 mL Right Kidney: Cortical thinning, no evidence of hydro, lower pole gassed out Left Kidney: Cortical thinning, no evidence of hydro Bladder: wnl Bilateral Jets seen: No Normal Post Void Residual: No There is no evidence for hydronephrosis at this point in time. No nephrolithiasis is seen. No jeremy s are identified. Bilateral cortical thinning identified. Cortical medullary differentiation is maint ained. The urinary bladder is anechoic. Bilateral ureteral jets are not seen. Abnormal postvoid resi dual. IMPRESSION: 1. No hydronephrosis or nephrolithiasis. 2. Findings of bilateral chronic renal disease. 3. Abnormal post void residual. Correlate for chronic bilateral obstruction versus other etiologies.
== END | disposition home or self-care (01) ==
LOC: RADUSWWP 12:36
PROVIDERS: ATTEND Internal Medicine Nephrology
DX: N18.32 Chronic kidney disease, stage 3b (principal); R39.198 Other difficulties with micturition
CPT/HCPCS: 76770